=== PATIENT | female | born 1950 | race Caucasian/White ===

== ENCOUNTER → 2016-12-13 | Outpatient (REF) | payer MEDICARE, OTHER ==
[~2016-12-13] MED LIST: BISO5TAB5 PO; COUM2.5T11 PO; CYCLOSPORINE OU; DULO1CAP PO; ICAPTAB8 PO; MULTCAP PO; PANT40TA2 PO; PERC5TAB6 PO; PRAV40TA2 PO; VITACAP9 PO; [UNRECOGNIZED DRUG - CODE] PO; calcium with D OR; fish oil OR; stool softener OR; tylenol OR
[2016-12-13 19:52] LABS: FOLATE 17.9 NG/ML (>5.4); VITAMIN B12 LEVEL 360 PG/ML (247-911)
[2016-12-13 20:44] LABS: ALBUMIN 4.1 GM/DL (3.2-5.2); ALBUMIN/GLOBULIN RATIO 1.11 (1.00-1.93); ALKALINE PHOSPHATASE 98 U/L (45-117); ALT/SGPT 27 U/L (12-78); ANION GAP 8 MEQ/L (8-16); AST/SGOT 18 U/L (15-37); BILIRUBIN,TOTAL 0.4 MG/DL (0.2-1.0); BLOOD UREA NITROGEN 12 MG/DL (7-18); CALCIUM LEVEL 9.1 MG/DL (8.8-10.2); CARBON DIOXIDE LEVEL 32 MEQ/L (21-32); CHLORIDE LEVEL 101 MEQ/L (98-107); CHOLESTEROL LEVEL 232 MG/DL (<200); CREATININE FOR GFR 0.78 MG/DL (0.55-1.02); FERRITIN 122 NG/ML (8-252); FREE T4 1.13 NG/DL (0.76-1.46); GLOMERULAR FILTRATION RATE > 60.0 (>45); GLUCOSE, FASTING 85 MG/DL (80-110); PERCENT SATURATION 15.5 % (13.2-37.4); SODIUM LEVEL 141 MEQ/L (136-145); TOTAL IRON BINDING CAPACITY 361 UG/DL (250-450); TOTAL PROTEIN 7.8 GM/DL (6.4-8.2); TRIGLYCERIDES LEVEL 76 MG/DL (<150)
[2016-12-13 21:01] LABS: MEAN CORPUSCULAR HEMOGLOBIN 30.4 pg (27.0-33.0); MEAN CORPUSCULAR HGB CONC 33.1 g/dl (32.0-36.5); MEAN CORPUSCULAR VOLUME 91.9 fl (80.0-96.0); RED CELL DISTRIBUTION WIDTH 12.5 % (11.5-14.5); WHITE BLOOD COUNT 6.2 K/mm3 (4.0-10.0)
== END ==
LOC: M SFHCADAM 11:35
PROVIDERS: ATTEND Family Medicine
DX: R53.83 Other fatigue (principal); I10 Essential (primary) hypertension; I73.00 Raynaud's syndrome without gangrene; E04.2 Nontoxic multinodular goiter; E89.0 Postprocedural hypothyroidism; E78.5 Hyperlipidemia, unspecified; Z79.899 Other long term (current) drug therapy

== ENCOUNTER → 2017-04-06 | Outpatient (REF) | payer MEDICARE, OTHER ==
[2017-04-06 12:02] LABS: ALBUMIN 3.6 GM/DL (3.2-5.2); ALBUMIN/GLOBULIN RATIO 1.03 (1.00-1.93); ALKALINE PHOSPHATASE 74 U/L (45-117); ALT/SGPT 24 U/L (12-78); AMYLASE 50 U/L (25-115); ANION GAP 6 MEQ/L (8-16); AST/SGOT 21 U/L (15-37); BILIRUBIN,TOTAL 0.4 MG/DL (0.2-1.0); BLOOD UREA NITROGEN 14 MG/DL (7-18); CALCIUM LEVEL 8.8 MG/DL (8.8-10.2); CARBON DIOXIDE LEVEL 32 MEQ/L (21-32); CHLORIDE LEVEL 103 MEQ/L (98-107); CREATININE FOR GFR 0.74 MG/DL (0.55-1.02); GLOMERULAR FILTRATION RATE > 60.0 (>45); GLUCOSE, FASTING 88 MG/DL (80-110); POTASSIUM SERUM 4.1 MEQ/L (3.5-5.1); SODIUM LEVEL 141 MEQ/L (136-145); TOTAL PROTEIN 7.1 GM/DL (6.4-8.2)
== END ==
LOC: M LABDRAWC 11:16
PROVIDERS: ATTEND Internal Medicine Gastroenterology
DX: R11.0 Nausea (principal)

== ENCOUNTER → 2017-06-04 | Outpatient (REF) | payer MEDICARE, OTHER ==
[~2017-06-04] MED LIST changes: -COUM2.5T11 PO; +COUM2.5T17 PO; +FISH5CAP PO; +LEVO100T5 PO; +MULT1TAB10 PO; +OCUVCAP PO; +PERC5TAB12 PO; -PERC5TAB6 PO; +PROBCAP4 PO; +REST0.05 OU; +SUPECAP24 PO; +TYLE500T78 PO
[2017-06-04 13:02] LABS: FREE T4 1.22 NG/DL (0.76-1.46)
== END ==
LOC: M SFHCCLAY 09:39
PROVIDERS: ATTEND Family Medicine
DX: E04.2 Nontoxic multinodular goiter (principal)

== ENCOUNTER → 2017-06-07 | Outpatient (REF) | payer MEDICARE, OTHER | LOC: M SFHCADAM 16:18 | PROVIDERS: ATTEND Family Medicine | DX: K58.0 Irritable bowel syndrome with diarrhea (principal); K21.9 Gastro-esophageal reflux disease without esophagitis; E89.0 Postprocedural hypothyroidism; Z86.19 Personal history of other infectious and parasitic diseases ==

== ENCOUNTER 2017-10-04 12:51 | Day surgery (SDC) | payer MEDICARE, BC, OTHER ==
[~2017-10-04] VITALS: Ht 162.6 cm; Wt 66.7 kg
[~2017-10-04 12:51] MED LIST changes: +LIDOCAINE 2% INJ 100 MG/5 ML SDV (FOR ANES.) As Ordered ONE; +PROPOFOL 200 MG/20 ML VIAL As Ordered ONE
[2017-10-04] MEDS ORDERED: NS 1,000 ML IV ONE (13:00)
[2017-10-04] MEDS ORDERED: PROPOFOL 200 MG/20 ML VIAL As Ordered ONE (14:03)
--- NOTE | 2017-10-04 14:11 | ROOR ---
Patient Name: Bianca Vu Procedure Date: 10/04/2017 1:43 PM Date of : 1950 Age: 67 Room: [facility] Gender: Female Note Status: Finalized Procedure: Colonoscopy Indications: Screening for colorectal malignant neoplasm Providers: Gerardo Castelan Jr, MD Referring MD: Jimmy Donaldson MD Requesting Provider: Medicines: Propofol per Anesthesia Complications: No immediate complications. Procedure: Pre-Anesthesia Assessment: - Prior to the procedure, a History and Physical was performed, and patient medications and allergies were reviewed. The patient is competent. The risks and benefits of the procedure and the sedation options and risks were discussed with the patient. All questions were answered and informed consent was obtained. Patient identification and proposed procedure were verified by the physician and the nurse in the pre-procedure area and in the procedure room. Mental Status Examination: alert and oriented. Airway Examination: normal oropharyngeal airway and neck mobility. Respiratory Examination: clear to auscultation. CV Examination: normal. ASA Grade Assessment: II - A patient with mild systemic disease. After reviewing the risks and benefits, the patient was deemed in satisfactory condition to undergo the procedure. The anesthesia plan was to use moderate sedation / analgesia (conscious sedation). Immediately prior to administration of medications, the patient was re-assessed for adequacy to receive sedatives. The heart rate, respiratory rate, oxygen saturations, blood pressure, adequacy of pulmonary ventilation, and response to care were monitored throughout the procedure. The physical status of the patient was re-assessed after the procedure. The Colonoscope was introduced through the anus and advanced to the cecum, identified by appendiceal orifice and ileocecal valve. The colonoscopy was performed without difficulty. The patient tolerated the procedure well. The quality of the bowel preparation was adequate and good. Findings: The rectum, recto-sigmoid colon, descending colon, transverse colon, cecum, appendiceal orifice and ileocecal valve appeared normal. A few small and large-mouthed diverticula were found in the sigmoid colon. Two polyps were found in the ascending colon. The polyps were small in size. These polyps were removed with a hot snare. Resection and retrieval were complete. Impression: - The rectum, recto-sigmoid colon, descending colon, transverse colon, cecum, appendiceal orifice and ileocecal valve are normal. - Diverticulosis in the sigmoid colon. - Two small polyps in the ascending colon, removed with a hot snare. Resected and retrieved. Recommendation: - Repeat colonoscopy in 5 years for surveillance. Gerardo Castelan MD Gerardo Castelan Jr, MD 10/04/2017 2:11:21 PM This report has been signed electronically. Number of Addenda: 0 Note Initiated On: 10/04/2017 1:43 PM Estimated Blood Loss: Estimated blood loss: none.
[2017-10-04 14:30] VITALS: BP 158/83
== END 2017-10-04 14:40 | disposition home or self-care (01) ==
LOC: M OPP 12:51
PROVIDERS: ATTEND Surgery
DX: Z12.11 Encounter for screening for malignant neoplasm of colon (principal); K57.30 Diverticulosis of large intestine without perforation or abscess without bleeding; D12.2 Benign neoplasm of ascending colon; K21.9 Gastro-esophageal reflux disease without esophagitis; E78.00 Pure hypercholesterolemia, unspecified; E03.9 Hypothyroidism, unspecified; F41.9 Anxiety disorder, unspecified; F33.9 Major depressive disorder, recurrent, unspecified; G47.30 Sleep apnea, unspecified; Z79.899 Other long term (current) drug therapy; Z88.8 Allergy status to other drugs, medicaments and biological substances; Z98.890 Other specified postprocedural states

== ENCOUNTER → 2017-12-11 | Outpatient (REF) | payer MEDICARE, OTHER ==
[2017-12-11 11:48] LABS: HEMOGLOBIN 13.6 g/dl (12.0-16.0); MEAN CORPUSCULAR HEMOGLOBIN 29.2 pg (27.0-33.0); MEAN CORPUSCULAR HGB CONC 32.4 g/dl (32.0-36.5); MEAN CORPUSCULAR VOLUME 90.1 fl (80.0-96.0); PLATELET COUNT, AUTOMATED 354 10^3/uL (150-450); RED BLOOD COUNT 4.66 10^6/uL (4.00-5.40); RED CELL DISTRIBUTION WIDTH 12.8 % (11.5-14.5); WHITE BLOOD COUNT 5.7 10^3/uL (4.0-10.0)
[2017-12-11 12:28] LABS: ANION GAP 7 MEQ/L (8-16); BLOOD UREA NITROGEN 12 MG/DL (7-18); CARBON DIOXIDE LEVEL 32 MEQ/L (21-32); CHLORIDE LEVEL 103 MEQ/L (98-107); CREATININE FOR GFR 0.64 MG/DL (0.55-1.02); GLOMERULAR FILTRATION RATE > 60.0 (>45); GLUCOSE, FASTING 95 MG/DL (80-110); POTASSIUM SERUM 3.7 MEQ/L (3.5-5.1); SODIUM LEVEL 142 MEQ/L (136-145)
[2017-12-11 12:29] LABS: ALBUMIN/GLOBULIN RATIO 1.21 (1.00-1.93); ALKALINE PHOSPHATASE 76 U/L (45-117); ALT/SGPT 18 U/L (12-78); AST/SGOT 19 U/L (7-37); BILIRUBIN,TOTAL 0.6 MG/DL (0.2-1.0); CHOLESTEROL LEVEL 223 MG/DL (<200); CHOLESTEROL RISK RATIO 2.423 (<5); FREE T4 1.34 NG/DL (0.76-1.46); HDL CHOLESTEROL 92 MG/DL (>40); LDL CHOLESTEROL 115.2 MG/DL (<100); NON-HDL-C 131 MG/DL; TOTAL PROTEIN 7.3 GM/DL (6.4-8.2); TRIGLYCERIDES LEVEL 79 MG/DL (<150)
[2017-12-13 00:06] LABS: Lyme Disease IgG/IgM Antibodie <0.91 ISR (0.00-0.90); Lyme Disease IgM Ab Quantitati <0.80 index (0.00-0.79)
== END ==
LOC: M SFHCCLAY 09:12
DX: K58.0 Irritable bowel syndrome with diarrhea (principal); K21.9 Gastro-esophageal reflux disease without esophagitis; E89.0 Postprocedural hypothyroidism; E04.1 Nontoxic single thyroid nodule; Z86.19 Personal history of other infectious and parasitic diseases; M85.80 Other specified disorders of bone density and structure, unspecified site
CPT/HCPCS: 84443

== ENCOUNTER → 2017-12-13 | Outpatient (CLI) | payer MEDICARE, OTHER | LOC: M ADAMS 11:54 | DX: M16.11 Unilateral primary osteoarthritis, right hip (principal) | CPT/HCPCS: 73502 ==

== ENCOUNTER → 2018-04-11 | Outpatient (REF) | payer MEDICARE, OTHER ==
[2018-04-11 19:10] LABS: HEMATOCRIT 41.6 % (36.0-47.0); HEMOGLOBIN 13.6 g/dl (12.0-15.5); MEAN CORPUSCULAR HEMOGLOBIN 29.4 pg (27.0-33.0); MEAN CORPUSCULAR HGB CONC 32.7 g/dl (32.0-36.5); MEAN CORPUSCULAR VOLUME 89.8 fl (80.0-96.0); PLATELET COUNT, AUTOMATED 381 10^3/uL (150-450); RED BLOOD COUNT 4.63 10^6/uL (4.00-5.40); RED CELL DISTRIBUTION WIDTH 12.5 % (11.5-14.5); WHITE BLOOD COUNT 6.7 10^3/uL (4.0-10.0)
[2018-04-11 19:28] LABS: ANION GAP 8 MEQ/L (8-16); BLOOD UREA NITROGEN 15 MG/DL (7-18); CALCIUM LEVEL 9.4 MG/DL (8.8-10.2); CARBON DIOXIDE LEVEL 29 MEQ/L (21-32); CHLORIDE LEVEL 101 MEQ/L (98-107); CREATININE FOR GFR 0.81 MG/DL (0.55-1.30); GLOMERULAR FILTRATION RATE > 60.0 (>45); GLUCOSE, FASTING 86 MG/DL (70-100); POTASSIUM SERUM 4.1 MEQ/L (3.5-5.1); SODIUM LEVEL 138 MEQ/L (136-145)
== END ==
LOC: M SFHCADAM 12:11
DX: I10 Essential (primary) hypertension (principal)
CPT/HCPCS: 80048

== ENCOUNTER → 2018-04-18 | Outpatient (CLI) | payer MEDICARE, BC, OTHER | LOC: M RAD 08:19 | DX: I10 Essential (primary) hypertension (principal) | CPT/HCPCS: 76775 ==

== ENCOUNTER → 2018-09-27 | Outpatient (REF) | payer MEDICARE, OTHER ==
[2018-09-27 17:21] LABS: ERYTHROCYTE SEDIMENTATION RATE 17 mm/hr (0-30)
== END ==
LOC: M SFHCLERA 14:05
DX: I73.00 Raynaud's syndrome without gangrene (principal); M19.90 Unspecified osteoarthritis, unspecified site; M35.00 Sjogren syndrome, unspecified
CPT/HCPCS: 86255

== ENCOUNTER → 2018-09-27 | Outpatient (CLI) | payer MEDICARE, OTHER | LOC: M LRY 14:17 | DX: M19.041 Primary osteoarthritis, right hand (principal); M25.742 Osteophyte, left hand; M19.042 Primary osteoarthritis, left hand; M25.741 Osteophyte, right hand | CPT/HCPCS: 73130; 86255 ==

== ENCOUNTER → 2018-10-04 | Outpatient (REF) | payer MEDICARE, OTHER | LOC: M LAB REF 16:14 | DX: R30.0 Dysuria (principal) | CPT/HCPCS: 87186 ==

== ENCOUNTER → 2018-11-06 | Outpatient (REF) | payer MEDICARE, OTHER | LOC: M WUC 19:19 | DX: N39.0 Urinary tract infection, site not specified (principal) | CPT/HCPCS: 87186 ==

== ENCOUNTER → 2018-12-09 | Outpatient (REF) | payer MEDICARE, OTHER ==
[~2018-12-09] MED LIST changes: -LIDOCAINE 2% INJ 100 MG/5 ML SDV (FOR ANES.) As Ordered ONE; -PANT40TA2 PO; +PANT40TA3 PO; -PROPOFOL 200 MG/20 ML VIAL As Ordered ONE
[2018-12-09 11:35] LABS: HEMATOCRIT 34.9 % (36.0-47.0); HEMOGLOBIN 11.6 g/dl (12.0-15.5); MEAN CORPUSCULAR HEMOGLOBIN 29.5 pg (27.0-33.0); MEAN CORPUSCULAR HGB CONC 33.2 g/dl (32.0-36.5); MEAN CORPUSCULAR VOLUME 88.8 fl (80.0-96.0); PLATELET COUNT, AUTOMATED 368 10^3/uL (150-450); RED BLOOD COUNT 3.93 10^6/uL (4.00-5.40); WHITE BLOOD COUNT 5.9 10^3/uL (4.0-10.0)
[2018-12-09 11:56] LABS: ALBUMIN 3.6 GM/DL (3.2-5.2); ALT/SGPT 28 U/L (12-78); BILIRUBIN,TOTAL 0.5 MG/DL (0.2-1.0); BLOOD UREA NITROGEN 14 MG/DL (7-18); CALCIUM LEVEL 9.3 MG/DL (8.8-10.2); CARBON DIOXIDE LEVEL 30 MEQ/L (21-32); CHLORIDE LEVEL 96 MEQ/L (98-107); CHOLESTEROL LEVEL 201 MG/DL (<200); CHOLESTEROL RISK RATIO 2.481 (<5); CREATININE FOR GFR 0.75 MG/DL (0.55-1.30); FREE T4 1.34 NG/DL (0.76-1.46); GLOMERULAR FILTRATION RATE > 60.0 (>39); GLUCOSE, FASTING 92 MG/DL (70-100); HDL CHOLESTEROL 81 MG/DL (>40); LDL CHOLESTEROL 106 MG/DL (<100); NON-HDL-C 120 MG/DL; SODIUM LEVEL 136 MEQ/L (136-145); TOTAL 25(OH) VITAMIN D 41.6 NG/ML (30.0-100.0); TRIGLYCERIDES LEVEL 72 MG/DL (<150)
== END ==
LOC: M SFHCCLAY 08:32
PROVIDERS: ATTEND Family Medicine
DX: I73.00 Raynaud's syndrome without gangrene (principal); R76.8 Other specified abnormal immunological findings in serum; M85.80 Other specified disorders of bone density and structure, unspecified site; E89.0 Postprocedural hypothyroidism

== ENCOUNTER → 2019-02-05 | Outpatient (REF) | payer MEDICARE, OTHER ==
[2019-02-05 11:45] LABS: BASO # 0.1 10^3/uL (0.0-0.2); BASO % 0.7 % (0.0-1.0); EOS # 0.3 10^3/uL (0.0-0.50); EOS % 3.4 % (0.0-3.0); HEMATOCRIT 38.5 % (36.0-47.0); HEMOGLOBIN 12.9 g/dl (12.0-15.5); LYMPH # 0.8 10^3/uL (1.5-4.5); LYMPH % 11.2 % (24.0-44.0); MEAN CORPUSCULAR HEMOGLOBIN 30.1 pg (27.0-33.0); MEAN CORPUSCULAR HGB CONC 33.5 g/dl (32.0-36.5); MONO # 0.6 10^3/uL (0.0-0.8); MONO % 8.6 % (0.0-5.0); NEUTROPHILS # 5.5 10^3/uL (1.8-7.7); PLATELET COUNT, AUTOMATED 431 10^3/uL (150-450); RED BLOOD COUNT 4.28 10^6/uL (4.00-5.40); WHITE BLOOD COUNT 7.3 10^3/uL (4.0-10.0)
[2019-02-05 12:13] LABS: PERCENT SATURATION 18.2 % (13.2-45.0); THYROID STIMULATING HORMONE 1.72 uIU/ML (0.358-3.740)
== END ==
LOC: M LABDRAWC 11:13
PROVIDERS: ATTEND Orthopaedic Surgery
DX: Z01.818 Encounter for other preprocedural examination (principal); D63.8 Anemia in other chronic diseases classified elsewhere; M25.551 Pain in right hip; M16.11 Unilateral primary osteoarthritis, right hip

== ENCOUNTER → 2019-03-25 | Outpatient (REF) | payer MEDICARE, OTHER ==
[2019-03-25 20:25] LABS: APPEARANCE, URINE CLOUDY (CLEAR); BACTERIA, URINE AUTO NEGATIVE (NEGATIVE); BILIRUBIN, URINE AUTO NEGATIVE (NEGATIVE); BLOOD, URINE BLOOD 2+ (NEGATIVE); COLOR, URINE AMBER (YELLOW); GLUCOSE, URINE (UA) AUTO NEGATIVE (NEGATIVE); KETONE, URINE AUTO TRACE mg/dL (NEGATIVE); LEUKOCYTE ESTERASE, URINE AUTO 3+ (NEGATIVE); MUCUS, URINE SMALL (NEGATIVE); NITRITE, URINE AUTO NEGATIVE (NEGATIVE); PROTEIN, URINE AUTO NEGATIVE (NEGATIVE); RBC, URINE AUTO 25 /HPF (0-3); SQUAMOUS EPITHELIAL CELL UR AU 1 /HPF (0-6); TRANSITIONAL EPITHELIAL AUTO 3 /HPF; WBC, URINE AUTO 138 /HPF (0-3)
== END ==
LOC: M SFHCADAM 15:32
PROVIDERS: ATTEND Family Medicine
DX: N39.46 Mixed incontinence (principal)

== ENCOUNTER 2019-05-12 13:16 | Outpatient (CLI) | payer MEDICARE, OTHER ==
[~2019-05-12] VITALS: Ht 162.6 cm; Wt 66.8 kg
[2019-05-12 13:25] VITALS: BP 141/68
[2019-05-12 14:24] LABS: ALBUMIN 3.3 GM/DL (3.2-5.2); BLOOD UREA NITROGEN 25 MG/DL (7-18); CARBON DIOXIDE LEVEL 28 MEQ/L (21-32); CHLORIDE LEVEL 96 MEQ/L (98-107); CREATININE FOR GFR 0.71 MG/DL (0.55-1.30); GLOMERULAR FILTRATION RATE > 60.0 (>39); GLUCOSE, FASTING 96 MG/DL (70-100); PHOSPHORUS LEVEL 3.8 MG/DL (2.5-4.9); POTASSIUM SERUM 3.7 MEQ/L (3.5-5.1); SODIUM LEVEL 133 MEQ/L (136-145)
[2019-05-12] MEDS ORDERED: LISI-538 PO (14:34)
[2019-05-12] MEDS ORDERED: PLAQ200T4 PO (14:35)
[2019-05-12] MEDS ORDERED: CHLO125TA PO (14:35)
[2019-05-12] MEDS ORDERED: ZOLEDRONIC ACID 5 MG in APPROPRIATE DILUENT 1 EA IV ONE (14:45)
[2019-05-12 15:13] VITALS: BP 127/61
[2019-05-12 15:35] VITALS: BP 125/69
== END 2019-05-12 15:35 | disposition home or self-care (01) ==
LOC: M INFU 13:16
PROVIDERS: ATTEND Family Medicine
DX: M85.80 Other specified disorders of bone density and structure, unspecified site (principal); E21.0 Primary hyperparathyroidism
CPT/HCPCS: 36415; 80069; J3489

== ENCOUNTER → 2019-09-08 | Outpatient (CLI) | payer MEDICARE, OTHER ==
[~2019-09-08] MED LIST changes: -BISO5TAB5 PO; +BISO5TAB9 PO; +CHLO125TA PO; -DULO1CAP PO; +DULO1CAP4 PO; +LISI-538 PO; +PLAQ200T4 PO
--- NOTE | 2019-09-08 16:58 | REP ---
REASON FOR EXAM: Shoulder pain. No trauma. PRIORS: None. 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 The glenohumeral relationship is within normal limits. There is no fracture or subluxation. IMPRESSION:Chronic changes as described above. Electronically Signed by Ignacio Perera DO 09/09/2019 02:11 P
--- NOTE | 2019-09-08 17:19 | REP ---
REASON: Pain. COMPARISON: None. There is syndesmophyte formation seen along the right side of the spine from T6 to T11 inclusive. Only partial small syndesmophytes are seen on the left at T11-12 and T12-L1. Vertebral body height and alignment is within normal limits. There is anterior disc space narrowing at every level. IMPRESSION: Chronic changes as described above. Correlate clinically for possible DISH. Electronically Signed by Ignacio Perera DO 09/09/2019 02:12 P
--- NOTE | 2019-09-08 17:19 | REP ---
REASON FOR EXAM: Pain. There are no priors. Two views of the right scapula show no acute fracture or destructive osseous lesion. Electronically Signed by Ignacio Perera DO 09/09/2019 02:12 P
== END ==
LOC: M WUC 14:44
PROVIDERS: ATTEND Nurse Practitioner Family
DX: M51.34 Other intervertebral disc degeneration, thoracic region (principal); M25.711 Osteophyte, right shoulder

== ENCOUNTER → 2019-11-29 | Outpatient (REF) | payer MEDICARE, OTHER | LOC: M LAB REF 12:20 | PROVIDERS: ATTEND Physician Assistant | DX: R30.0 Dysuria (principal) ==

== ENCOUNTER → 2020-02-25 | Outpatient (REF) | payer MEDICARE, OTHER ==
[~2020-02-25] MED LIST changes: +BISO5TAB14 PO; -BISO5TAB9 PO
[2020-02-25 11:27] LABS: HEMATOCRIT 40.6 % (36.0-47.0); HEMOGLOBIN 13.7 g/dl (12.0-15.5); MEAN CORPUSCULAR HEMOGLOBIN 30.2 pg (27.0-33.0); MEAN CORPUSCULAR HGB CONC 33.7 g/dl (32.0-36.5); MEAN CORPUSCULAR VOLUME 89.6 fl (80.0-96.0); PLATELET COUNT, AUTOMATED 340 10^3/uL (150-450); RED BLOOD COUNT 4.53 10^6/uL (4.00-5.40); WHITE BLOOD COUNT 6.9 10^3/uL (4.0-10.0)
[2020-02-25 11:39] LABS: ALBUMIN 3.7 GM/DL (3.2-5.2); ALT/SGPT 19 U/L (12-78); BILIRUBIN,TOTAL 0.6 MG/DL (0.2-1.0); BLOOD UREA NITROGEN 18 MG/DL (7-18); CALCIUM LEVEL 9.5 MG/DL (8.8-10.2); CARBON DIOXIDE LEVEL 33 MEQ/L (21-32); CHLORIDE LEVEL 95 MEQ/L (98-107); CHOLESTEROL LEVEL 209 MG/DL (<200); CHOLESTEROL RISK RATIO 2.375 (<5); CREATININE FOR GFR 0.81 MG/DL (0.55-1.30); FREE T4 1.23 NG/DL (0.76-1.46); GLOMERULAR FILTRATION RATE > 60.0 (>39); GLUCOSE, FASTING 109 MG/DL (70-100); HDL CHOLESTEROL 88 MG/DL (>40); LDL CHOLESTEROL 106 MG/DL (<100); NON-HDL-C 121 MG/DL; POTASSIUM SERUM 3.8 MEQ/L (3.5-5.1); SODIUM LEVEL 132 MEQ/L (136-145); THYROID STIMULATING HORMONE 0.847 uIU/ML (0.358-3.740); TOTAL PROTEIN 6.7 GM/DL (6.4-8.2); TRIGLYCERIDES LEVEL 75 MG/DL (<150)
[2020-02-25 11:43] LABS: TOTAL 25(OH) VITAMIN D 19.7 NG/ML (30.0-100.0)
== END ==
LOC: M SFHCCLAY 07:14
PROVIDERS: ATTEND Family Medicine
DX: I10 Essential (primary) hypertension (principal); K21.9 Gastro-esophageal reflux disease without esophagitis; E89.0 Postprocedural hypothyroidism; E78.5 Hyperlipidemia, unspecified; E55.9 Vitamin D deficiency, unspecified

== ENCOUNTER → 2020-09-14 | Outpatient (REF) | payer MEDICARE, OTHER ==
[~2020-09-14] MED LIST changes: +PANT40TA29 PO; -PANT40TA3 PO
== END ==
LOC: M LAB REF 15:17
PROVIDERS: ATTEND Physician Assistant
DX: R30.0 Dysuria (principal)

== ENCOUNTER → 2020-12-09 | Outpatient (REF) | payer MEDICARE, OTHER ==
[2020-12-09 12:03] LABS: BLOOD UREA NITROGEN 14 MG/DL (7-18); CALCIUM LEVEL 9.6 MG/DL (8.8-10.2); CARBON DIOXIDE LEVEL 34 MEQ/L (21-32); CHLORIDE LEVEL 92 MEQ/L (98-107); GLOMERULAR FILTRATION RATE > 60.0 (>39); GLUCOSE, FASTING 95 MG/DL (70-100); POTASSIUM SERUM 3.9 MEQ/L (3.5-5.1); SODIUM LEVEL 129 MEQ/L (136-145)
== END ==
LOC: M SFHCCLAY 08:33
PROVIDERS: ATTEND Family Medicine
DX: M85.80 Other specified disorders of bone density and structure, unspecified site (principal)

== ENCOUNTER 2020-12-13 13:09 | Outpatient (CLI) | payer MEDICARE, BC, OTHER ==
[~2020-12-13] VITALS: Ht 162.6 cm; Wt 70.5 kg
[~2020-12-13 13:09] MED LIST changes: -LISI-538 PO; +LISI20TA33 PO
[2020-12-13] MEDS ORDERED: ZOLEDRONIC ACID 5 MG in IV 1 EA IV ONE (13:30)
[2020-12-13 13:42] VITALS: BP 138/70
[2020-12-13 14:06] VITALS: BP 148/72
== END 2020-12-13 14:15 | disposition home or self-care (01) ==
LOC: M INFU 13:09
PROVIDERS: ATTEND Family Medicine
DX: M19.90 Unspecified osteoarthritis, unspecified site (principal); Z88.6 Allergy status to analgesic agent; Z88.8 Allergy status to other drugs, medicaments and biological substances
CPT/HCPCS: 96365; J3489

== ENCOUNTER → 2021-01-07 | Outpatient (REF) | payer MEDICARE, OTHER ==
[2021-01-07 11:30] LABS: BASO # 0.1 10^3/uL (0.0-0.2); EOS # 0.4 10^3/uL (0.0-0.5); HEMATOCRIT 40.3 % (36.0-47.0); HEMOGLOBIN 13.5 g/dl (12.0-15.5); LYMPH # 1.1 10^3/uL (1.5-5.0); LYMPH % 14.6 % (24.0-44.0); MEAN CORPUSCULAR HEMOGLOBIN 29.9 pg (27.0-33.0); MEAN CORPUSCULAR HGB CONC 33.5 g/dl (32.0-36.5); MEAN CORPUSCULAR VOLUME 89.2 fl (80.0-96.0); MONO # 0.7 10^3/uL (0.0-0.8); MONO % 10.1 % (2.0-8.0); NEUTROPHILS # 4.9 10^3/uL (1.5-8.5); PLATELET COUNT, AUTOMATED 378 10^3/uL (150-450); RED BLOOD COUNT 4.52 10^6/uL (4.00-5.40); WHITE BLOOD COUNT 7.2 10^3/uL (4.0-10.0)
[2021-01-07 12:00] LABS: ERYTHROCYTE SEDIMENTATION RATE 11 mm/hr (0-30)
[2021-01-07 12:03] LABS: ALBUMIN 4.1 GM/DL (3.2-5.2); ALT/SGPT 20 U/L (12-78); BILIRUBIN,TOTAL 0.6 MG/DL (0.2-1.0); BLOOD UREA NITROGEN 9 MG/DL (7-18); CALCIUM LEVEL 9.2 MG/DL (8.8-10.2); CARBON DIOXIDE LEVEL 32 MEQ/L (21-32); CHLORIDE LEVEL 91 MEQ/L (98-107); CREATININE FOR GFR 0.72 MG/DL (0.55-1.30); GLOMERULAR FILTRATION RATE > 60.0 (>39); GLUCOSE, FASTING 89 MG/DL (70-100); POTASSIUM SERUM 3.8 MEQ/L (3.5-5.1); SODIUM LEVEL 130 MEQ/L (136-145); TOTAL PROTEIN 7.3 GM/DL (6.4-8.2)
== END ==
LOC: M SFHCCLAY 08:20
PROVIDERS: ATTEND Internal Medicine
DX: M35.00 Sjogren syndrome, unspecified (principal)

== ENCOUNTER → 2021-04-01 | Outpatient (REF) | payer MEDICARE, OTHER ==
[2021-04-01 12:06] LABS: HEMATOCRIT 41.2 % (36.0-47.0); HEMOGLOBIN 13.3 g/dl (12.0-15.5); MEAN CORPUSCULAR HEMOGLOBIN 29.6 pg (27.0-33.0); MEAN CORPUSCULAR HGB CONC 32.3 g/dl (32.0-36.5); MEAN CORPUSCULAR VOLUME 91.8 fl (80.0-96.0); PLATELET COUNT, AUTOMATED 360 10^3/uL (150-450); RED BLOOD COUNT 4.49 10^6/uL (4.00-5.40); WHITE BLOOD COUNT 8.3 10^3/uL (4.0-10.0)
[2021-04-01 12:35] LABS: ALBUMIN 3.8 GM/DL (3.2-5.2); ALT/SGPT 18 U/L (12-78); BILIRUBIN,TOTAL 0.4 MG/DL (0.2-1.0); BLOOD UREA NITROGEN 10 MG/DL (7-18); CALCIUM LEVEL 9.7 MG/DL (8.8-10.2); CARBON DIOXIDE LEVEL 32 MEQ/L (21-32); CHLORIDE LEVEL 97 MEQ/L (98-107); CHOLESTEROL LEVEL 224 MG/DL (<200); CHOLESTEROL RISK RATIO 1.964 (<5); CREATININE FOR GFR 0.71 MG/DL (0.55-1.30); GLOMERULAR FILTRATION RATE > 60.0 (>39); GLUCOSE, FASTING 87 MG/DL (70-100); HDL CHOLESTEROL 114 MG/DL (>40); LDL CHOLESTEROL 100 MG/DL (<100); NON-HDL-C 110 MG/DL; POTASSIUM SERUM 4.2 MEQ/L (3.5-5.1); SODIUM LEVEL 134 MEQ/L (136-145); TOTAL PROTEIN 6.7 GM/DL (6.4-8.2); TRIGLYCERIDES LEVEL 50 MG/DL (<150)
[2021-04-01 12:41] LABS: HEMOGLOBIN A1c 5.3 %
== END ==
LOC: M SFHCCLAY 08:27
PROVIDERS: ATTEND Family Medicine
DX: F32.9 Major depressive disorder, single episode, unspecified (principal); E74.9 Disorder of carbohydrate metabolism, unspecified; E78.5 Hyperlipidemia, unspecified

== ENCOUNTER → 2021-06-24 | Outpatient (REF) | payer MEDICARE, OTHER ==
[2021-06-24 12:32] LABS: BASO # 0.1 10^3/uL (0.0-0.2); EOS # 0.4 10^3/uL (0.0-0.5); EOS % 5.8 % (0.0-3.0); HEMATOCRIT 39.7 % (36.0-47.0); LYMPH # 1.2 10^3/uL (1.5-5.0); LYMPH % 17.3 % (24.0-44.0); MEAN CORPUSCULAR HEMOGLOBIN 29.8 pg (27.0-33.0); MEAN CORPUSCULAR HGB CONC 32.7 g/dl (32.0-36.5); MEAN CORPUSCULAR VOLUME 91.1 fl (80.0-96.0); MONO # 0.7 10^3/uL (0.0-0.8); MONO % 10.2 % (2.0-8.0); NEUTROPHILS # 4.6 10^3/uL (1.5-8.5); NEUTROPHILS % 65.4 % (36.0-66.0); PLATELET COUNT, AUTOMATED 363 10^3/uL (150-450); RED BLOOD COUNT 4.36 10^6/uL (4.00-5.40)
[2021-06-24 13:07] LABS: ALBUMIN 3.8 GM/DL (3.2-5.2); ALT/SGPT 20 U/L (12-78); BILIRUBIN,TOTAL 0.4 MG/DL (0.2-1.0); BLOOD UREA NITROGEN 17 MG/DL (7-18); CALCIUM LEVEL 9.5 MG/DL (8.8-10.2); CARBON DIOXIDE LEVEL 31 MEQ/L (21-32); CHLORIDE LEVEL 98 MEQ/L (98-107); GLOMERULAR FILTRATION RATE > 60.0 (>39); GLUCOSE, FASTING 91 MG/DL (70-100); SODIUM LEVEL 134 MEQ/L (136-145); TOTAL PROTEIN 6.9 GM/DL (6.4-8.2)
[2021-06-24 13:08] LABS: ERYTHROCYTE SEDIMENTATION RATE 9 mm/hr (0-30)
== END ==
LOC: M SFHCCLAY 08:13
PROVIDERS: ATTEND Internal Medicine
DX: M35.00 Sjogren syndrome, unspecified (principal); E87.1 Hypo-osmolality and hyponatremia

== ENCOUNTER → 2021-10-18 | Outpatient (REF) | payer MEDICARE, OTHER ==
[2021-10-18 18:42] LABS: BLOOD UREA NITROGEN 14 MG/DL (7-18); CALCIUM LEVEL 9.8 MG/DL (8.8-10.2); CARBON DIOXIDE LEVEL 32 MEQ/L (21-32); CHLORIDE LEVEL 92 MEQ/L (98-107); CREATININE FOR GFR 0.77 MG/DL (0.55-1.30); FREE T4 1.35 NG/DL (0.76-1.46); GLOMERULAR FILTRATION RATE > 60.0 (>39); GLUCOSE, FASTING 89 MG/DL (70-100); POTASSIUM SERUM 3.5 MEQ/L (3.5-5.1); SODIUM LEVEL 130 MEQ/L (136-145)
== END ==
LOC: M SFHCADAM 15:52
PROVIDERS: ATTEND Family Medicine
DX: E89.0 Postprocedural hypothyroidism (principal); I10 Essential (primary) hypertension

== ENCOUNTER → 2021-10-18 | Outpatient (CLI) | payer MEDICARE, OTHER ==
--- NOTE | 2021-10-18 16:35 | REP ---
INDICATION: THORACIC SPINE PAIN, OSTEOPENIA DETERMINED BY XRAY COMPARISON: None. TECHNIQUE: AP, lateral, and swimmers views. FINDINGS: Alignment and kyphosis maintained. No acute fracture/compression injury. Advanced multilevel degenerative changes include endplate sclerosis, disc space narrowing and bridging osteophytosis. IMPRESSION: Degenerative changes. No acute fracture/compression injury or subluxation. <Electronically signed by aPvel Mandujano > 10/18/21 [id number]
== END ==
LOC: M ADAMS 16:01
PROVIDERS: ATTEND Family Medicine
DX: M51.34 Other intervertebral disc degeneration, thoracic region (principal); M85.80 Other specified disorders of bone density and structure, unspecified site

== ENCOUNTER → 2021-12-28 | Outpatient (CLI) | payer MEDICARE, BC, OTHER ==
[2021-12-28 08:20] LABS: APPEARANCE, URINE CLEAR (CLEAR); BACTERIA, URINE AUTO NEGATIVE (NEGATIVE); BILIRUBIN, URINE AUTO NEGATIVE (NEGATIVE); BLOOD, URINE BLOOD 1+ (NEGATIVE); COLOR, URINE YELLOW (YELLOW); GLUCOSE, URINE (UA) AUTO NEGATIVE (NEGATIVE); KETONE, URINE AUTO NEGATIVE (NEGATIVE); LEUKOCYTE ESTERASE, URINE AUTO NEGATIVE (NEGATIVE); NITRITE, URINE AUTO NEGATIVE (NEGATIVE); PROTEIN, URINE AUTO NEGATIVE (NEGATIVE); RBC, URINE AUTO 6 /HPF (0-3); SPECIFIC GRAVITY URINE AUTO 1.011 (1.002-1.035); SQUAMOUS EPITHELIAL CELL UR AU 0 /HPF (0-6); UROBILINOGEN, URINE AUTO 0.2 mg/dL (0.0-2.0); WBC, URINE AUTO 1 /HPF (0-3)
[2021-12-28 08:32] LABS: BASO # 0.1 10^3/uL (0.0-0.2); BASO % 0.8 % (0.0-1.0); EOS # 0.4 10^3/uL (0.0-0.5); EOS % 5.3 % (0.0-3.0); HEMATOCRIT 39.7 % (36.0-47.0); HEMOGLOBIN 13.6 g/dl (12.0-15.5); LYMPH # 1.1 10^3/uL (1.5-5.0); LYMPH % 15.3 % (24.0-44.0); MEAN CORPUSCULAR HEMOGLOBIN 30.2 pg (27.0-33.0); MEAN CORPUSCULAR HGB CONC 34.3 g/dl (32.0-36.5); MONO # 0.8 10^3/uL (0.0-0.8); MONO % 10.4 % (2.0-8.0); NEUTROPHILS % 67.8 % (36.0-66.0); PLATELET COUNT, AUTOMATED 370 10^3/uL (150-450); RED BLOOD COUNT 4.51 10^6/uL (4.00-5.40); WHITE BLOOD COUNT 7.3 10^3/uL (4.0-10.0)
[2021-12-28 08:47] LABS: TOTAL PROTEIN,RANDOM URINE 13.1 MG/DL (0.0-12.0)
[2021-12-28 08:54] LABS: ERYTHROCYTE SEDIMENTATION RATE 11 mm/hr (0-30)
[2021-12-28 08:58] LABS: ALBUMIN 3.7 GM/DL (3.2-5.2); ALT/SGPT 20 U/L (12-78); BILIRUBIN,TOTAL 0.4 MG/DL (0.2-1.0); BLOOD UREA NITROGEN 18 MG/DL (7-18); CALCIUM LEVEL 9.6 MG/DL (8.8-10.2); CARBON DIOXIDE LEVEL 31 MEQ/L (21-32); CHLORIDE LEVEL 95 MEQ/L (98-107); COMPLEMENT C3 118 MG/DL (90-180); COMPLEMENT C4 28 MG/DL (10-40); CREATININE FOR GFR 0.76 MG/DL (0.55-1.30); GLOMERULAR FILTRATION RATE > 60.0 (>39); GLUCOSE, FASTING 85 MG/DL (70-100); POTASSIUM SERUM 3.6 MEQ/L (3.5-5.1); SODIUM LEVEL 132 MEQ/L (136-145)
[2021-12-30 13:12] LABS: ANTI DS-DNA AB Negative (Negative)
== END ==
LOC: M LAB 07:17
PROVIDERS: ATTEND Internal Medicine Rheumatology
DX: M35.00 Sjogren syndrome, unspecified (principal)

== ENCOUNTER → 2022-01-16 | Outpatient (REF) | payer MEDICARE, OTHER ==
[2022-01-16 11:27] LABS: BASO # 0.1 10^3/uL (0.0-0.2); BASO % 0.9 % (0.0-1.0); EOS # 0.4 10^3/uL (0.0-0.5); HEMATOCRIT 39.4 % (36.0-47.0); HEMOGLOBIN 13.1 g/dl (12.0-15.5); LYMPH % 14.7 % (24.0-44.0); MEAN CORPUSCULAR HEMOGLOBIN 29.8 pg (27.0-33.0); MEAN CORPUSCULAR HGB CONC 33.2 g/dl (32.0-36.5); MEAN CORPUSCULAR VOLUME 89.5 fl (80.0-96.0); MONO # 0.8 10^3/uL (0.0-0.8); NEUTROPHILS # 4.6 10^3/uL (1.5-8.5); NEUTROPHILS % 67.3 % (36.0-66.0); PLATELET COUNT, AUTOMATED 365 10^3/uL (150-450); WHITE BLOOD COUNT 6.8 10^3/uL (4.0-10.0)
[2022-01-16 11:30] LABS: APPEARANCE, URINE CLEAR (CLEAR); BACTERIA, URINE AUTO NEGATIVE (NEGATIVE); BILIRUBIN, URINE AUTO NEGATIVE (NEGATIVE); BLOOD, URINE BLOOD 1+ (NEGATIVE); COLOR, URINE YELLOW (YELLOW); GLUCOSE, URINE (UA) AUTO NEGATIVE (NEGATIVE); KETONE, URINE AUTO NEGATIVE (NEGATIVE); LEUKOCYTE ESTERASE, URINE AUTO NEGATIVE (NEGATIVE); MUCUS, URINE SMALL (NEGATIVE); NITRITE, URINE AUTO NEGATIVE (NEGATIVE); PROTEIN, URINE AUTO NEGATIVE (NEGATIVE); RBC, URINE AUTO 2 /HPF (0-3); SQUAMOUS EPITHELIAL CELL UR AU 0 /HPF (0-6); UROBILINOGEN, URINE AUTO 0.2 mg/dL (0.0-2.0); WBC, URINE AUTO 0 /HPF (0-3)
[2022-01-16 11:55] LABS: CREATININE,RANDOM URINE 51.8 MG/DL; TOTAL PROTEIN,RANDOM URINE 11.8 MG/DL (0.0-12.0)
[2022-01-16 12:00] LABS: ERYTHROCYTE SEDIMENTATION RATE 10 mm/hr (0-30)
[2022-01-16 12:18] LABS: ALBUMIN 3.9 GM/DL (3.2-5.2); ALT/SGPT 19 U/L (12-78); BILIRUBIN,TOTAL 0.5 MG/DL (0.2-1.0); BLOOD UREA NITROGEN 15 MG/DL (7-18); CALCIUM LEVEL 9.4 MG/DL (8.8-10.2); CARBON DIOXIDE LEVEL 31 MEQ/L (21-32); CHLORIDE LEVEL 96 MEQ/L (98-107); COMPLEMENT C3 111 MG/DL (90-180); COMPLEMENT C4 28 MG/DL (10-40); CREATININE FOR GFR 0.85 MG/DL (0.55-1.30); FREE T4 1.27 NG/DL (0.76-1.46); GLOMERULAR FILTRATION RATE > 60.0 (>39); GLUCOSE, FASTING 105 MG/DL (70-100); POTASSIUM SERUM 3.9 MEQ/L (3.5-5.1); SODIUM LEVEL 134 MEQ/L (136-145)
== END ==
LOC: M SFHCCLAY 08:29
PROVIDERS: ATTEND Family Medicine
DX: R05.8 Other specified cough (principal); M35.00 Sjogren syndrome, unspecified; I73.00 Raynaud's syndrome without gangrene; M15.4 Erosive (osteo)arthritis; Z79.899 Other long term (current) drug therapy

== ENCOUNTER → 2022-01-20 | Outpatient (CLI) | payer MEDICARE, BC | LOC: M CLY 09:40 | PROVIDERS: ATTEND Family Medicine | DX: E89.0 Postprocedural hypothyroidism (principal); Z98.1 Arthrodesis status ==

== ENCOUNTER → 2022-01-20 | Outpatient (REF) | payer MEDICARE, OTHER ==
[2022-01-20 11:42] LABS: HEMATOCRIT 41.2 % (36.0-47.0); HEMOGLOBIN 13.9 g/dl (12.0-15.5); MEAN CORPUSCULAR HEMOGLOBIN 29.6 pg (27.0-33.0); MEAN CORPUSCULAR HGB CONC 33.7 g/dl (32.0-36.5); MEAN CORPUSCULAR VOLUME 87.8 fl (80.0-96.0); PLATELET COUNT, AUTOMATED 397 10^3/uL (150-450); RED BLOOD COUNT 4.69 10^6/uL (4.00-5.40); WHITE BLOOD COUNT 8.2 10^3/uL (4.0-10.0)
[2022-01-20 12:18] LABS: BLOOD UREA NITROGEN 12 MG/DL (7-18); CARBON DIOXIDE LEVEL 28 MEQ/L (21-32); CHLORIDE LEVEL 93 MEQ/L (98-107); CREATININE FOR GFR 0.88 MG/DL (0.55-1.30); GLOMERULAR FILTRATION RATE > 60.0 (>39); GLUCOSE, FASTING 86 MG/DL (70-100); NT-PRO BNP 87 PG/ML (<125); POTASSIUM SERUM 3.7 MEQ/L (3.5-5.1); SODIUM LEVEL 129 MEQ/L (136-145)
== END ==
LOC: M SFHCCLAY 09:29
PROVIDERS: ATTEND Family Medicine
DX: R53.83 Other fatigue (principal); H02.403 Unspecified ptosis of bilateral eyelids; R10.13 Epigastric pain; R06.00 Dyspnea, unspecified

== ENCOUNTER → 2022-02-13 | Outpatient (CLI) | payer MEDICARE, BC, OTHER | LOC: M CARPUL 09:18 | PROVIDERS: ATTEND Family Medicine | DX: R06.00 Dyspnea, unspecified (principal) ==

== ENCOUNTER → 2022-03-08 | Outpatient (REF) | payer MEDICARE, OTHER ==
[2022-03-08 16:30] LABS: FREE T4 1.15 NG/DL (0.76-1.46); THYROID STIMULATING HORMONE 1.16 uIU/ML (0.358-3.740)
== END ==
LOC: M SFHCCLAY 13:33
PROVIDERS: ATTEND Family Medicine
DX: E89.0 Postprocedural hypothyroidism (principal)

== ENCOUNTER → 2022-04-15 | Outpatient (CLI) | payer MEDICARE, BC, OTHER ==
[~2022-04-15] MED LIST changes: +CITRTAB18 PO; +IRBE75TA4; +LUTE1CAP7 PO; +META28.32 PO; +SUCR1TAB56; +SUPETAB56 PO; +SYNT125T; +TYLE650T38 PO
== END ==
LOC: M LABSMTC 10:01
PROVIDERS: ATTEND Anesthesiology
DX: Z01.812 Encounter for preprocedural laboratory examination (principal); Z20.822 Contact with and (suspected) exposure to COVID-19

== ENCOUNTER 2022-04-20 08:03 | Day surgery (SDC) | payer MEDICARE, BC, OTHER ==
[~2022-04-20] VITALS: Ht 162.6 cm; Wt 73.0 kg
[~2022-04-20 08:03] MED LIST changes: +NS 1,000 ML IV ONE
[2022-04-20] MEDS ORDERED: fentaNYL 100 MCG/2 ML INJECTION As Ordered ONE (09:11)
[2022-04-20] MEDS ORDERED: propofoL 200 MG/20 ML VIAL As Ordered ONE (09:12)
[2022-04-20] MEDS ORDERED: LIDOCAINE 2% 100MG/5ML SDV (FOR ANES.) As Ordered ONE (09:12)
[2022-04-20 09:53] VITALS: BP 163/74
== END 2022-04-20 09:55 | disposition home or self-care (01) ==
LOC: M OPP 08:03
PROVIDERS: ATTEND Surgery
DX: Z12.11 Encounter for screening for malignant neoplasm of colon (principal); Z86.010 Personal history of colon polyps; K63.5 Polyp of colon; K31.7 Polyp of stomach and duodenum; K31.89 Other diseases of stomach and duodenum; R13.10 Dysphagia, unspecified; Z79.02 Long term (current) use of antithrombotics/antiplatelets; Z79.1 Long term (current) use of non-steroidal anti-inflammatories (NSAID); Z79.899 Other long term (current) drug therapy; Z88.8 Allergy status to other drugs, medicaments and biological substances
CPT/HCPCS: 43239; 88305; G0105; J3010

== ENCOUNTER → 2022-06-20 | Outpatient (REF) | payer MEDICARE, OTHER ==
[~2022-06-20] MED LIST changes: -NS 1,000 ML IV ONE
[2022-06-20 12:20] LABS: APPEARANCE, URINE CLEAR (CLEAR); BACTERIA, URINE AUTO NEGATIVE (NEGATIVE); BILIRUBIN, URINE AUTO NEGATIVE (NEGATIVE); BLOOD, URINE BLOOD 1+ (NEGATIVE); COLOR, URINE YELLOW (YELLOW); GLUCOSE, URINE (UA) AUTO NEGATIVE (NEGATIVE); KETONE, URINE AUTO NEGATIVE (NEGATIVE); LEUKOCYTE ESTERASE, URINE AUTO NEGATIVE (NEGATIVE); MUCUS, URINE SMALL (NEGATIVE); NITRITE, URINE AUTO NEGATIVE (NEGATIVE); PROTEIN, URINE AUTO NEGATIVE (NEGATIVE); RBC, URINE AUTO 2 /HPF (0-3); SPECIFIC GRAVITY URINE AUTO 1.006 (1.002-1.035); SQUAMOUS EPITHELIAL CELL UR AU 0 /HPF (0-6); UROBILINOGEN, URINE AUTO 0.2 mg/dL (0.0-2.0); WBC, URINE AUTO 0 /HPF (0-3)
[2022-06-20 12:28] LABS: BASO # 0.1 10^3/uL (0.0-0.2); BASO % 0.9 % (0.0-1.0); EOS # 0.4 10^3/uL (0.0-0.5); EOS % 5.3 % (0.0-3.0); HEMATOCRIT 39.7 % (36.0-47.0); HEMOGLOBIN 13.1 g/dl (12.0-15.5); LYMPH # 1.1 10^3/uL (1.5-5.0); MEAN CORPUSCULAR HEMOGLOBIN 28.6 pg (27.0-33.0); MEAN CORPUSCULAR VOLUME 86.7 fl (80.0-96.0); MONO # 0.7 10^3/uL (0.0-0.8); MONO % 10.3 % (2.0-8.0); NEUTROPHILS # 4.8 10^3/uL (1.5-8.5); NEUTROPHILS % 68.1 % (36.0-66.0); PLATELET COUNT, AUTOMATED 354 10^3/uL (150-450); RED BLOOD COUNT 4.58 10^6/uL (4.00-5.40)
[2022-06-20 12:57] LABS: ERYTHROCYTE SEDIMENTATION RATE 8 mm/hr (0-30)
[2022-06-20 13:01] LABS: ALBUMIN 3.9 GM/DL (3.2-5.2); ALT/SGPT 22 U/L (12-78); BILIRUBIN,TOTAL 0.5 MG/DL (0.2-1.0); BLOOD UREA NITROGEN 12 MG/DL (7-18); CARBON DIOXIDE LEVEL 31 MEQ/L (21-32); CHLORIDE LEVEL 94 MEQ/L (98-107); COMPLEMENT C3 115 MG/DL (90-180); COMPLEMENT C4 28 MG/DL (10-40); CREATININE FOR GFR 0.78 MG/DL (0.55-1.30); GLOMERULAR FILTRATION RATE > 60.0 (>39); GLUCOSE, FASTING 109 MG/DL (70-100); POTASSIUM SERUM 3.6 MEQ/L (3.5-5.1); SODIUM LEVEL 131 MEQ/L (136-145); TOTAL PROTEIN 6.9 GM/DL (6.4-8.2)
[2022-06-20 13:09] LABS: CREATININE,RANDOM URINE 29.8 MG/DL; TOTAL PROTEIN,RANDOM URINE 11.8 MG/DL (0.0-12.0)
== END ==
LOC: M SFHCRHEU 08:42
PROVIDERS: ATTEND Internal Medicine Rheumatology
DX: M35.00 Sjogren syndrome, unspecified (principal); I73.00 Raynaud's syndrome without gangrene; M15.4 Erosive (osteo)arthritis; Z79.899 Other long term (current) drug therapy

== ENCOUNTER → 2022-12-08 | Outpatient (REF) | payer MEDICARE, OTHER ==
[2022-12-08 12:19] LABS: ALKALINE PHOSPHATASE 64 U/L (46-116); ALT/SGPT 19 U/L (7.0-40); AST/SGOT 22 U/L (<34); BILIRUBIN,TOTAL 0.6 MG/DL (0.3-1.2); BLOOD UREA NITROGEN 12 MG/DL (9-23); CALCIUM LEVEL 10.4 MG/DL (8.3-10.6); CARBON DIOXIDE LEVEL 31 MMOL/L (20-31); CHLORIDE LEVEL 93 MMOL/L (98-107); CHOLESTEROL LEVEL 214 MG/DL (<200); CHOLESTEROL RISK RATIO 2.37 (<5); GLOMERULAR FILTRATION RATE > 60.0 (>39); GLUCOSE, FASTING 94 MG/DL (74-106); HDL CHOLESTEROL 90.1 MG/DL (>40); LDL CHOLESTEROL 107.7 MG/DL (<100); NON-HDL-C 124 MG/DL; POTASSIUM SERUM 3.6 MMOL/L (3.5-5.1); SODIUM LEVEL 131 MMOL/L (136-145); TOTAL PROTEIN 7.3 G/DL (5.7-8.2); TRIGLYCERIDES LEVEL 81 MG/DL (<150)
[2022-12-08 12:20] LABS: THYROID STIMULATING HORMONE 0.761 uIU/ML (0.55-4.78)
[2022-12-08 12:21] LABS: FREE T4 1.44 NG/DL (0.89-1.76)
== END ==
LOC: M SFHCCLAY 09:17
PROVIDERS: ATTEND Family Medicine
DX: E78.5 Hyperlipidemia, unspecified (principal); E89.0 Postprocedural hypothyroidism; I10 Essential (primary) hypertension

== ENCOUNTER → 2022-12-26 | Outpatient (REF) | payer MEDICARE, OTHER ==
[2022-12-26 13:50] LABS: APPEARANCE, URINE MANUAL CLEAR (CLEAR); COLOR, URINE MANUAL YELLOW (YELLOW); SPECIFIC GRAVITY,URINE MANUAL 1.015 (1.002-1.035)
[2022-12-26 13:51] LABS: BILIRUBIN, URINE MANUAL NEGATIVE (NEGATIVE); BLOOD URINE MANUAL POSITIVE (NEGATIVE); GLUCOSE, URINE (UA) MANUAL NEGATIVE (NEGATIVE); KETONE, URINE MANUAL NEGATIVE (NEGATIVE); LEUKOCYTE ESTERASE, URINE MAN TRACE (NEGATIVE); NITRITE, URINE MANUAL NEGATIVE (NEGATIVE); PROTEIN, URINE MANUAL NEGATIVE (NEGATIVE); UROBILINOGEN, URINE MANUAL NORMAL (NORMAL)
[2022-12-26 14:08] LABS: TOTAL PROTEIN,RANDOM URINE 16.6 MG/DL (0.0-14.0)
[2022-12-26 14:13] LABS: C REACTIVE PROTEIN QUANTITATIV < 0.40 MG/DL (<1.0)
[2022-12-26 14:14] LABS: COMPLEMENT C3 134.1 MG/DL (90.0-170.0); CREATININE,RANDOM URINE 81.6 MG/DL
[2022-12-26 14:15] LABS: COMPLEMENT C4 41.1 MG/DL (12-36)
[2022-12-26 14:34] LABS: BACTERIA, URINE SMALL AMOUNT; HYALINE CAST, URINE NONE SEEN /lpf (0-1); SQUAMOUS EPITHELIAL CELL URINE SMALL AMOUNT /hpf (SMALL AMT); WBC, URINE 0-1 /hpf (0-3)
== END ==
LOC: M SFHCADAM 10:36
PROVIDERS: ATTEND Family Medicine
DX: M35.00 Sjogren syndrome, unspecified (principal); I73.00 Raynaud's syndrome without gangrene; M15.4 Erosive (osteo)arthritis; Z79.899 Other long term (current) drug therapy

== ENCOUNTER 2023-01-29 12:30 | Outpatient (CLI) | payer MEDICARE, BC, OTHER ==
[2023-01-29 12:30] VITALS: BP 150/72
[2023-01-29 13:12] VITALS: BP 126/74
[2023-01-29] MEDS ORDERED: ZOLEDRONIC ACID 5 MG in IV 1 EA IV ONE (13:30)
== END 2023-01-29 13:15 | disposition home or self-care (01) ==
LOC: M INFU 12:30
PROVIDERS: ATTEND Family Medicine
DX: M15.4 Erosive (osteo)arthritis (principal); Z88.6 Allergy status to analgesic agent; Z88.8 Allergy status to other drugs, medicaments and biological substances
CPT/HCPCS: 96413; J3489

== ENCOUNTER → 2023-06-19 | Outpatient (CLI) | payer MEDICARE, OTHER | LOC: M ADAMS 11:14 | PROVIDERS: ATTEND Family Medicine | DX: M85.88 Other specified disorders of bone density and structure, other site (principal); Z96.643 Presence of artificial hip joint, bilateral ==

== ENCOUNTER → 2023-07-02 | Outpatient (REF) | payer MEDICARE, OTHER | LOC: M LAB REF 16:56 | PROVIDERS: ATTEND Student in an Organized Health Care Education/Training Program | DX: R30.0 Dysuria (principal) ==

== ENCOUNTER → 2023-10-17 | Outpatient (REF) | payer MEDICARE, OTHER ==
[2023-10-17 11:42] LABS: APPEARANCE, URINE CLEAR (CLEAR); BACTERIA, URINE AUTO NEGATIVE (NEGATIVE); BILIRUBIN, URINE AUTO NEGATIVE (NEGATIVE); BLOOD, URINE BLOOD NEGATIVE (NEGATIVE); COLOR, URINE YELLOW (YELLOW); GLUCOSE, URINE (UA) AUTO NEGATIVE (NEGATIVE); KETONE, URINE AUTO NEGATIVE (NEGATIVE); LEUKOCYTE ESTERASE, URINE AUTO NEGATIVE (NEGATIVE); NITRITE, URINE AUTO NEGATIVE (NEGATIVE); PROTEIN, URINE AUTO NEGATIVE (NEGATIVE); RBC, URINE AUTO 2 /HPF (0-3); SPECIFIC GRAVITY URINE AUTO 1.012 (1.002-1.035); SQUAMOUS EPITHELIAL CELL UR AU 0 /HPF (0-6); UROBILINOGEN, URINE AUTO 0.2 mg/dL (0.0-2.0); WBC, URINE AUTO 2 /HPF (0-3)
== END ==
LOC: M SMT 09:51
PROVIDERS: ATTEND Urology
DX: R31.29 Other microscopic hematuria (principal)

== ENCOUNTER → 2023-10-22 | Outpatient (REF) | payer MEDICARE, BC ==
[2023-10-22 12:23] LABS: BLOOD UREA NITROGEN 14 MG/DL (9-23); CALCIUM LEVEL 9.8 MG/DL (8.3-10.6); CARBON DIOXIDE LEVEL 33 MMOL/L (20-31); CHLORIDE LEVEL 97 MMOL/L (98-107); CREATININE FOR GFR 0.69 MG/DL (0.55-1.30); GLOMERULAR FILTRATION RATE > 60.0 (>39); GLUCOSE, FASTING 98 MG/DL (74-106); POTASSIUM SERUM 3.9 MMOL/L (3.5-5.1); SODIUM LEVEL 135 MMOL/L (136-145)
== END ==
LOC: M SFHCCLAY 08:09
PROVIDERS: ATTEND Urology
DX: R31.29 Other microscopic hematuria (principal)

== ENCOUNTER → 2023-10-26 | Outpatient (CLI) | payer MEDICARE, BC, OTHER ==
[~2023-10-26] MED LIST changes: +ISOVUE-370 76% 100ML VIAL As Ordered ONE
== END ==
LOC: M RAD 13:25
PROVIDERS: ATTEND Urology
DX: N28.1 Cyst of kidney, acquired (principal); R31.29 Other microscopic hematuria
CPT/HCPCS: 74178; Q9967

== ENCOUNTER → 2023-11-28 | Outpatient (REF) | payer MEDICARE, BC, OTHER ==
[~2023-11-28] MED LIST changes: -ISOVUE-370 76% 100ML VIAL As Ordered ONE
[2023-11-28 16:06] LABS: APPEARANCE, URINE CLEAR (CLEAR); BACTERIA, URINE AUTO NEGATIVE (NEGATIVE); BILIRUBIN, URINE AUTO NEGATIVE (NEGATIVE); BLOOD, URINE BLOOD NEGATIVE (NEGATIVE); COLOR, URINE YELLOW (YELLOW); GLUCOSE, URINE (UA) AUTO NEGATIVE (NEGATIVE); KETONE, URINE AUTO NEGATIVE (NEGATIVE); LEUKOCYTE ESTERASE, URINE AUTO NEGATIVE (NEGATIVE); NITRITE, URINE AUTO NEGATIVE (NEGATIVE); PROTEIN, URINE AUTO NEGATIVE (NEGATIVE); RBC, URINE AUTO 3 /HPF (0-3); SPECIFIC GRAVITY URINE AUTO 1.013 (1.002-1.035); SQUAMOUS EPITHELIAL CELL UR AU 0 /HPF (0-6); UROBILINOGEN, URINE AUTO 0.2 mg/dL (0.0-2.0); WBC, URINE AUTO 0 /HPF (0-3)
== END ==
LOC: M SMT 15:27
PROVIDERS: ATTEND Urology
DX: R31.29 Other microscopic hematuria (principal)

== ENCOUNTER 2024-01-21 18:22 | Observation (INO) | payer MEDICARE, BC, OTHER ==
[~2024-01-21] VITALS: Ht 162.6 cm; Wt 68.1 kg
[~2024-01-21 18:22] MED LIST changes: +IRBE75TA11 PO; -IRBE75TA4; -SYNT125T; +SYNT125T PO
[2024-01-21 19:35] LABS: BASO # 0.1 10^3/uL (0.0-0.2); BASO % 0.7 % (0.0-1.0); EOS # 0.3 10^3/uL (0.0-0.5); EOS % 3.6 % (0.0-3.0); LYMPH # 0.7 10^3/uL (1.5-5.0); LYMPH % 9.8 % (24.0-44.0); MEAN CORPUSCULAR HEMOGLOBIN 30.1 pg (27.0-33.0); MEAN CORPUSCULAR HGB CONC 34.3 g/dl (32.0-36.5); MEAN CORPUSCULAR VOLUME 87.7 fl (80.0-96.0); MONO # 0.5 10^3/uL (0.0-0.8); MONO % 7.3 % (2.0-8.0); NEUTROPHILS # 5.5 10^3/uL (1.5-8.5); NEUTROPHILS % 78.5 % (36.0-66.0); PLATELET COUNT, AUTOMATED 304 10^3/uL (150-450); RED BLOOD COUNT 3.99 10^6/uL (4.00-5.40)
[2024-01-21 19:48] LABS: PARTIAL THROMBOPLASTIN TIME 23.9 SECONDS (24.8-34.2); PROTHROMBIN TIME 12.9 SECONDS (12.5-14.5)
[2024-01-21] MEDS ORDERED: ISOVUE-370 76% 100ML VIAL As Ordered ONE (19:58)
[2024-01-21 20:42] LABS: THYROID STIMULATING HORMONE 0.149 uIU/ML (0.55-4.78)
[2024-01-21 20:48] LABS: BLOOD UREA NITROGEN 11 MG/DL (9-23); CALCIUM LEVEL 8.9 MG/DL (8.3-10.6); CARBON DIOXIDE LEVEL 28 MMOL/L (20-31); CHLORIDE LEVEL 99 MMOL/L (98-107); CK-MB VALUE MASS 1.3 NG/ML (<3.6); CPK CREATINE PHOSPHOKINASE 94 U/L (34-145); CREATININE FOR GFR 0.62 MG/DL (0.55-1.30); GLOMERULAR FILTRATION RATE > 60.0 (>39); GLUCOSE, FASTING 117 MG/DL (74-106); MAGNESIUM LEVEL 1.8 MG/DL (1.8-2.4); MB/CK RELATIVE INDEX 1.38 (< OR =4); POTASSIUM SERUM 4.2 MMOL/L (3.5-5.1); SODIUM LEVEL 129 MMOL/L (136-145)
[2024-01-21] MEDS ORDERED: ACETAMINOPHEN TAB 650MG DOSE (2X325MG) PO PRN (22:00)
[2024-01-21 22:10] LABS: RSV AMPLIFICATION NEGATIVE (NEGATIVE)
[2024-01-21] MEDS ORDERED: DULO60CA35 PO (22:58)
[2024-01-21] MEDS ORDERED: META58.68 PO (22:58)
[2024-01-21] MEDS: LACTATED RINGER'S 1000 ML IV ONE (23:14)
[2024-01-21] MEDS: POTASSIUM CHLORIDE 10MEQ SR TABLET PO ONE (23:14)
[2024-01-21] MEDS ORDERED: HOME MED LIST COMPLETE! XX SCH ×2 (23:25→23:35)
[2024-01-21] MEDS ORDERED: SYST1SOL OU (23:34)
[2024-01-22] MEDS ORDERED: METAMUCIL (PSYLLIUM) PACKET PO PRN
[2024-01-22] MEDS ORDERED: ARTIFICIAL TEARS DROPS 15ML BTL (VISINE DRY RELIEF) OU SA PRN (00:20)
[2024-01-22 01:02] VITALS: BP 129/75; TEMP 97.9; O2SAT 96
[2024-01-22] MEDS ORDERED: PILL CUTTER 1 EACH XX PRN (01:15)
[2024-01-22 06:11] VITALS: BP 159/82; TEMP 97.9; O2SAT 97
[2024-01-22 06:29] LABS: BLOOD UREA NITROGEN 11 MG/DL (9-23); CALCIUM LEVEL 9.4 MG/DL (8.3-10.6); CARBON DIOXIDE LEVEL 30 MMOL/L (20-31); CHLORIDE LEVEL 102 MMOL/L (98-107); CREATININE FOR GFR 0.54 MG/DL (0.55-1.30); GLOMERULAR FILTRATION RATE > 60.0 (>39); GLUCOSE, FASTING 112 MG/DL (74-106); POTASSIUM SERUM 3.5 MMOL/L (3.5-5.1); SODIUM LEVEL 135 MMOL/L (136-145)
[2024-01-22] MEDS: LEVOTHYROXINE 125MCG TABLET (0.125MG) PO SCH (06:32)
[2024-01-22] MEDS: PANTOPRAZOLE 40MG TAB (PROTONIX) PO SCH (08:42)
[2024-01-22] MEDS: HYDROXYCHLOROQUINE 200 MG TAB PO SCH (08:42)
[2024-01-22] MEDS: DULoxetine 20MG CAP (CYMBALTA) PO SCH (08:42)
[2024-01-22] MEDS ORDERED: CHLORTHALIDONE 25 MG TAB PO SCH (09:00)
[2024-01-22] MEDS ORDERED: DULoxetine 30MG CAPSULE (CYMBALTA) PO SCH (09:00)
[2024-01-22] MEDS ORDERED: ENOXAPARIN 40MG/0.4ML SYRINGE (J1650 PER 10MG) SC SCH (09:00)
[2024-01-22 11:34] VITALS: BP 144/78
[2024-01-22] MEDS: amLODIPine 5 MG TAB PO SCH (11:34)
[2024-01-22 14:00] VITALS: BP 154/82; TEMP 97.9; O2SAT 96
[2024-01-22] MEDS ORDERED: LEVO100T5 PO (14:16)
[2024-01-22] MEDS ORDERED: AMLO1TAB24 PO (14:16)
[2024-01-22] MEDS ORDERED: IRBESARTAN 150MG TAB PO SCH (21:00)
[2024-01-22] MEDS ORDERED: PRAVASTATIN 20 MG TAB PO SCH (21:00)
[2024-01-22] MEDS ORDERED: DULoxetine 20MG CAP (CYMBALTA) PO SCH (21:00)
[2024-01-23] MEDS ORDERED: LEVOTHYROXINE 100MCG TABLET (0.1MG) PO SCH (06:00)
[2024-01-23] MEDS ORDERED: HYDROXYCHLOROQUINE 200 MG TAB PO SCH (09:00)
== END 2024-01-22 15:57 | disposition home or self-care (01) ==
LOC: M ED 18:22 → M ED INP 18:23 → M MSPAV 01-22 01:02
PROVIDERS: ADMIT Internal Medicine; ATTEND Internal Medicine
DX: R55 Syncope and collapse (principal); M35.00 Sjogren syndrome, unspecified; E78.5 Hyperlipidemia, unspecified; I10 Essential (primary) hypertension; G47.33 Obstructive sleep apnea (adult) (pediatric); G25.81 Restless legs syndrome; F32.A Depression, unspecified; M79.7 Fibromyalgia; E03.9 Hypothyroidism, unspecified; Z79.899 Other long term (current) drug therapy; Z88.8 Allergy status to other drugs, medicaments and biological substances
CPT/HCPCS: 36415; 70450; 71045; 71275; 72125; 74177; 80047; 80048; 82550; 82553; 83735; 84132; 84439; 84443; 84484; 85025; 85610; 85730; 87631; 93005; 93041; 93306; 94760; 96374; 97116; 97161; 97165; 97530; 99285; G0378; Q9967

== ENCOUNTER → 2024-02-11 | Outpatient (CLI) | payer MEDICARE, BC, OTHER ==
[~2024-02-11] MED LIST changes: +AMLO1TAB24 PO; +DULO60CA35 PO; +META58.68 PO; +SYST1SOL OU
== END ==
LOC: M SLEEP 20:00
PROVIDERS: ATTEND Physician Assistant
DX: G47.61 Periodic limb movement disorder (principal)

== ENCOUNTER → 2024-02-18 | Outpatient (REF) | payer MEDICARE, OTHER ==
[2024-02-18 12:11] LABS: BASO # 0.1 10^3/uL (0.0-0.2); BASO % 0.9 % (0.0-1.0); EOS # 0.4 10^3/uL (0.0-0.5); EOS % 5.8 % (0.0-3.0); HEMOGLOBIN 13.2 g/dl (12.0-15.5); LYMPH % 14.8 % (24.0-44.0); MEAN CORPUSCULAR HEMOGLOBIN 29.5 pg (27.0-33.0); MEAN CORPUSCULAR HGB CONC 32.2 g/dl (32.0-36.5); MEAN CORPUSCULAR VOLUME 91.7 fl (80.0-96.0); MONO # 0.5 10^3/uL (0.0-0.8); MONO % 7.7 % (2.0-8.0); NEUTROPHILS # 4.8 10^3/uL (1.5-8.5); NEUTROPHILS % 70.7 % (36.0-66.0); PLATELET COUNT, AUTOMATED 336 10^3/uL (150-450); RED BLOOD COUNT 4.47 10^6/uL (4.00-5.40); WHITE BLOOD COUNT 6.8 10^3/uL (4.0-10.0)
[2024-02-18 12:23] LABS: APPEARANCE, URINE CLEAR (CLEAR); BACTERIA, URINE AUTO NEGATIVE (NEGATIVE); BILIRUBIN, URINE AUTO NEGATIVE (NEGATIVE); BLOOD, URINE BLOOD 1+ (NEGATIVE); COLOR, URINE YELLOW (YELLOW); GLUCOSE, URINE (UA) AUTO NEGATIVE (NEGATIVE); KETONE, URINE AUTO NEGATIVE (NEGATIVE); LEUKOCYTE ESTERASE, URINE AUTO NEGATIVE (NEGATIVE); MUCUS, URINE SMALL (NEGATIVE); NITRITE, URINE AUTO NEGATIVE (NEGATIVE); PROTEIN, URINE AUTO NEGATIVE (NEGATIVE); RBC, URINE AUTO 4 /HPF (0-3); SPECIFIC GRAVITY URINE AUTO 1.012 (1.002-1.035); SQUAMOUS EPITHELIAL CELL UR AU 0 /HPF (0-6); UROBILINOGEN, URINE AUTO 0.2 mg/dL (0.0-2.0); WBC, URINE AUTO 4 /HPF (0-3)
[2024-02-18 12:35] LABS: TOTAL PROTEIN,RANDOM URINE 12.1 MG/DL (0.0-14.0)
[2024-02-18 12:39] LABS: C REACTIVE PROTEIN QUANTITATIV < 0.40 MG/DL (<1.0)
[2024-02-18 12:40] LABS: CREATININE,RANDOM URINE 67.6 MG/DL
[2024-02-18 12:42] LABS: ALBUMIN 3.8 G/DL (3.2-5.2); ALKALINE PHOSPHATASE 63 U/L (46-116); ALT/SGPT 17 U/L (7.0-40); AST/SGOT 15 U/L (<34); BILIRUBIN,TOTAL 0.6 MG/DL (0.3-1.2); BLOOD UREA NITROGEN 12 MG/DL (9-23); CALCIUM LEVEL 9.7 MG/DL (8.3-10.6); CARBON DIOXIDE LEVEL 33 MMOL/L (20-31); CHLORIDE LEVEL 107 MMOL/L (98-107); CREATININE FOR GFR 0.71 MG/DL (0.55-1.30); GLOMERULAR FILTRATION RATE > 60.0 (>39); GLUCOSE, FASTING 91 MG/DL (74-106); POTASSIUM SERUM 4.1 MMOL/L (3.5-5.1); SODIUM LEVEL 142 MMOL/L (136-145); TOTAL PROTEIN 6.6 G/DL (5.7-8.2)
[2024-02-18 12:44] LABS: COMPLEMENT C3 132.3 MG/DL (90.0-170.0); COMPLEMENT C4 31.1 MG/DL (12-36)
[2024-02-18 14:41] LABS: ERYTHROCYTE SEDIMENTATION RATE 13 mm/hr (0-30)
[2024-02-19 15:08] LABS: COMPLEMENT TOTAL (CH50) > 60 U/mL (>41)
[2024-02-21 23:07] LABS: ANTI DS-DNA AB Negative (Negative)
== END ==
LOC: M SFHCCLAY 09:03
PROVIDERS: ATTEND Internal Medicine Rheumatology
DX: M35.00 Sjogren syndrome, unspecified (principal); I73.00 Raynaud's syndrome without gangrene; M15.4 Erosive (osteo)arthritis; Z79.899 Other long term (current) drug therapy; R31.21 Asymptomatic microscopic hematuria

== ENCOUNTER → 2024-02-26 | Outpatient (REF) | payer MEDICARE, OTHER | LOC: M SFHCRHEU 11:07 | PROVIDERS: ATTEND Internal Medicine Rheumatology | DX: M35.00 Sjogren syndrome, unspecified (principal); I73.00 Raynaud's syndrome without gangrene; M15.4 Erosive (osteo)arthritis; Z79.899 Other long term (current) drug therapy; R31.21 Asymptomatic microscopic hematuria; R31.29 Other microscopic hematuria ==

== ENCOUNTER → 2024-02-27 | Outpatient (REF) | payer MEDICARE, BC ==
[2024-02-27 18:07] LABS: MEAN CORPUSCULAR HEMOGLOBIN 29.5 pg (27.0-33.0); MEAN CORPUSCULAR HGB CONC 32.5 g/dl (32.0-36.5); MEAN CORPUSCULAR VOLUME 90.7 fl (80.0-96.0); PLATELET COUNT, AUTOMATED 319 10^3/uL (150-450); RED BLOOD COUNT 4.41 10^6/uL (4.00-5.40); WHITE BLOOD COUNT 7.7 10^3/uL (4.0-10.0)
[2024-02-27 18:35] LABS: BLOOD UREA NITROGEN 17 MG/DL (9-23); CALCIUM LEVEL 10.1 MG/DL (8.3-10.6); CARBON DIOXIDE LEVEL 28 MMOL/L (20-31); CHLORIDE LEVEL 102 MMOL/L (98-107); CREATININE FOR GFR 0.69 MG/DL (0.55-1.30); FREE T4 1.11 NG/DL (0.89-1.76); GLOMERULAR FILTRATION RATE > 60.0 (>39); GLUCOSE, FASTING 87 MG/DL (74-106); MAGNESIUM LEVEL 2.1 MG/DL (1.8-2.4); POTASSIUM SERUM 4.1 MMOL/L (3.5-5.1); SODIUM LEVEL 136 MMOL/L (136-145); THYROID STIMULATING HORMONE 3.056 uIU/ML (0.55-4.78)
== END ==
LOC: M SFHCADAM 13:24
PROVIDERS: ATTEND Family Medicine
DX: I47.10 Supraventricular tachycardia, unspecified (principal); E87.1 Hypo-osmolality and hyponatremia; E89.0 Postprocedural hypothyroidism

== ENCOUNTER → 2024-04-09 | Outpatient (REF) | payer MEDICARE, BC ==
[2024-04-09 14:33] LABS: CHOLESTEROL RISK RATIO 2.55 (<5); HDL CHOLESTEROL 83.3 MG/DL (>40); LDL CHOLESTEROL 114.1 MG/DL (<100); NON-HDL-C 129.7 MG/DL
[2024-04-09 14:34] LABS: PTH INTACT 71.3 PG/ML (18.5-88.0); THYROID STIMULATING HORMONE 2.301 uIU/ML (0.55-4.78)
[2024-04-09 14:35] LABS: FREE T4 1.44 NG/DL (0.89-1.76)
[2024-04-09 14:40] LABS: HEMOGLOBIN 12.7 g/dl (12.0-15.5); MEAN CORPUSCULAR HEMOGLOBIN 29.1 pg (27.0-33.0); MEAN CORPUSCULAR HGB CONC 31.8 g/dl (32.0-36.5); MEAN CORPUSCULAR VOLUME 91.5 fl (80.0-96.0); PLATELET COUNT, AUTOMATED 324 10^3/uL (150-450); RED BLOOD COUNT 4.37 10^6/uL (4.00-5.40); WHITE BLOOD COUNT 6.6 10^3/uL (4.0-10.0)
[2024-04-09 15:06] LABS: HEMOGLOBIN A1c 5.5 % (4.0-6.0)
== END ==
LOC: M SFHCADAM 08:44
PROVIDERS: ATTEND Family Medicine
DX: E21.0 Primary hyperparathyroidism (principal); M85.80 Other specified disorders of bone density and structure, unspecified site; F32.9 Major depressive disorder, single episode, unspecified; E78.5 Hyperlipidemia, unspecified; E89.0 Postprocedural hypothyroidism; Z13.1 Encounter for screening for diabetes mellitus

== ENCOUNTER → 2024-06-03 | Outpatient (REF) | payer MEDICARE, BC ==
[2024-06-03 17:25] LABS: APPEARANCE, URINE CLEAR (CLEAR); BACTERIA, URINE AUTO NEGATIVE (NEGATIVE); BILIRUBIN, URINE AUTO NEGATIVE (NEGATIVE); BLOOD, URINE BLOOD NEGATIVE (NEGATIVE); COLOR, URINE YELLOW (YELLOW); GLUCOSE, URINE (UA) AUTO NEGATIVE (NEGATIVE); KETONE, URINE AUTO TRACE mg/dL (NEGATIVE); LEUKOCYTE ESTERASE, URINE AUTO NEGATIVE (NEGATIVE); NITRITE, URINE AUTO NEGATIVE (NEGATIVE); PROTEIN, URINE AUTO NEGATIVE (NEGATIVE); RBC, URINE AUTO 2 /HPF (0-3); SPECIFIC GRAVITY URINE AUTO 1.008 (1.002-1.035); SQUAMOUS EPITHELIAL CELL UR AU 0 /HPF (0-6); UROBILINOGEN, URINE AUTO 0.2 mg/dL (0.0-2.0); WBC, URINE AUTO 0 /HPF (0-3)
== END ==
LOC: M SMT 16:59
PROVIDERS: ATTEND Urology
DX: R31.29 Other microscopic hematuria (principal)
CPT/HCPCS: 81001; 88108; G0463

== ENCOUNTER 2024-08-19 11:22 | Day surgery (SDC) | payer MEDICARE, BC ==
[~2024-08-19] VITALS: Ht 165.1 cm; Wt 64.0 kg
[~2024-08-19 11:22] MED LIST changes: +LEVO100C PO; +THERTAB52 PO; +VITA100093 PO
[2024-08-19] MEDS ORDERED: propofoL 200 MG/20 ML VIAL As Ordered ONE (11:37)
[2024-08-19] MEDS ORDERED: LIDOCAINE 2% 100MG/5ML SDV (FOR ANES.) As Ordered ONE (11:37)
[2024-08-19] MEDS: LR 1,000 ML IV SCH (12:20)
[2024-08-19] MEDS: ceFAZolin 2 GM/D5W 50 ML IV BAG As Ordered ONE (12:55)
[2024-08-19] MEDS: LIDOCAINE 1% SDV 30ML VIAL As Ordered ONE (13:05)
[2024-08-19] MEDS: IRBESARTAN 150MG TAB PO SCH (13:34)
[2024-08-19 13:52] VITALS: TEMP 97.2
[2024-08-19 14:40] VITALS: BP 148/84; O2SAT 100
== END 2024-08-19 14:50 | disposition home or self-care (01) ==
LOC: M SDC 11:22
PROVIDERS: ATTEND Internal Medicine Cardiovascular Disease
DX: R55 Syncope and collapse (principal); I47.19 Other supraventricular tachycardia; I10 Essential (primary) hypertension; E78.5 Hyperlipidemia, unspecified; E03.9 Hypothyroidism, unspecified; K58.8 Other irritable bowel syndrome; K21.9 Gastro-esophageal reflux disease without esophagitis; M81.0 Age-related osteoporosis without current pathological fracture; Z88.8 Allergy status to other drugs, medicaments and biological substances; Z79.899 Other long term (current) drug therapy; F41.9 Anxiety disorder, unspecified; F32.A Depression, unspecified
CPT/HCPCS: 33285; C1764; J0690

== ENCOUNTER → 2024-09-16 | Outpatient (REF) | payer MEDICARE, BC | LOC: M SFHCRHEU 11:41 | PROVIDERS: ATTEND Internal Medicine Rheumatology | DX: M35.9 Systemic involvement of connective tissue, unspecified (principal); M35.00 Sjogren syndrome, unspecified; I73.00 Raynaud's syndrome without gangrene; M15.4 Erosive (osteo)arthritis; Z79.899 Other long term (current) drug therapy; R31.21 Asymptomatic microscopic hematuria; R31.29 Other microscopic hematuria; Z53.9 Procedure and treatment not carried out, unspecified reason ==

== ENCOUNTER → 2024-09-29 | Outpatient (REF) | payer MEDICARE, BC ==
[2024-09-29 12:29] LABS: APPEARANCE, URINE CLEAR (CLEAR); BACTERIA, URINE AUTO NEGATIVE (NEGATIVE); BILIRUBIN, URINE AUTO NEGATIVE (NEGATIVE); BLOOD, URINE BLOOD NEGATIVE (NEGATIVE); COLOR, URINE YELLOW (YELLOW); GLUCOSE, URINE (UA) AUTO NEGATIVE (NEGATIVE); KETONE, URINE AUTO NEGATIVE (NEGATIVE); LEUKOCYTE ESTERASE, URINE AUTO NEGATIVE (NEGATIVE); NITRITE, URINE AUTO NEGATIVE (NEGATIVE); PROTEIN, URINE AUTO NEGATIVE (NEGATIVE); RBC, URINE AUTO 1 /HPF (0-3); SPECIFIC GRAVITY URINE AUTO 1.011 (1.002-1.035); SQUAMOUS EPITHELIAL CELL UR AU 0 /HPF (0-6); UROBILINOGEN, URINE AUTO 0.2 mg/dL (0.0-2.0); WBC, URINE AUTO 1 /HPF (0-3)
[2024-09-29 13:23] LABS: TOTAL PROTEIN,RANDOM URINE 18.4 MG/DL (0.0-14.0)
[2024-09-29 13:25] LABS: BASO # 0.1 10^3/uL (0.0-0.2); BASO % 0.8 % (0.0-1.0); EOS # 0.2 10^3/uL (0.0-0.5); EOS % 2.9 % (0.0-3.0); HEMATOCRIT 39.2 % (36.0-47.0); LYMPH # 0.7 10^3/uL (1.5-5.0); LYMPH % 10.1 % (24.0-44.0); MEAN CORPUSCULAR HGB CONC 33.2 g/dl (32.0-36.5); MEAN CORPUSCULAR VOLUME 90.5 fl (80.0-96.0); MONO # 0.5 10^3/uL (0.0-0.8); MONO % 7.5 % (2.0-8.0); NEUTROPHILS # 5.7 10^3/uL (1.5-8.5); NEUTROPHILS % 78.3 % (36.0-66.0); PLATELET COUNT, AUTOMATED 348 10^3/uL (150-450); RED BLOOD COUNT 4.33 10^6/uL (4.00-5.40); WHITE BLOOD COUNT 7.2 10^3/uL (4.0-10.0)
[2024-09-29 13:28] LABS: CREATININE,RANDOM URINE 53.9 MG/DL
[2024-09-29 13:32] LABS: ERYTHROCYTE SEDIMENTATION RATE 18 mm/hr (0-30)
[2024-09-29 13:35] LABS: C REACTIVE PROTEIN QUANTITATIV < 0.40 MG/DL (<1.0)
[2024-09-29 13:37] LABS: ALBUMIN 3.9 G/DL (3.2-5.2); ALKALINE PHOSPHATASE 73 U/L (35-104); ALT/SGPT 19 U/L (7.0-40); AST/SGOT 20 U/L (<34); BILIRUBIN,TOTAL 0.5 MG/DL (0.3-1.2); BLOOD UREA NITROGEN 14 MG/DL (9-23); CALCIUM LEVEL 10.4 MG/DL (8.3-10.6); CARBON DIOXIDE LEVEL 32 MMOL/L (20-31); CHLORIDE LEVEL 97 MMOL/L (98-107); COMPLEMENT C3 129.6 MG/DL (90.0-170.0); CREATININE FOR GFR 0.62 MG/DL (0.55-1.30); GLOMERULAR FILTRATION RATE > 60.0 (>39); GLUCOSE, FASTING 91 MG/DL (74-106); POTASSIUM SERUM 3.9 MMOL/L (3.5-5.1); SODIUM LEVEL 133 MMOL/L (136-145); TOTAL PROTEIN 7.2 G/DL (5.7-8.2)
== END ==
LOC: M LABDRAWC 11:29
PROVIDERS: ATTEND Internal Medicine Rheumatology
DX: M35.00 Sjogren syndrome, unspecified (principal); I73.00 Raynaud's syndrome without gangrene; M15.4 Erosive (osteo)arthritis; Z79.899 Other long term (current) drug therapy; R31.21 Asymptomatic microscopic hematuria

== ENCOUNTER → 2024-12-05 | Outpatient (REF) | payer MEDICARE, BC ==
[2024-12-05 18:16] LABS: HEMATOCRIT 41.9 % (36.0-47.0); HEMOGLOBIN 13.7 g/dl (12.0-15.5); MEAN CORPUSCULAR HGB CONC 32.7 g/dl (32.0-36.5); MEAN CORPUSCULAR VOLUME 88.8 fl (80.0-96.0); PLATELET COUNT, AUTOMATED 376 10^3/uL (150-450); RED BLOOD COUNT 4.72 10^6/uL (4.00-5.40); WHITE BLOOD COUNT 8.3 10^3/uL (4.0-10.0)
[2024-12-05 18:19] LABS: HEMOGLOBIN A1c 5.6 % (4.0-6.0)
[2024-12-05 18:38] LABS: ALBUMIN 4.1 G/DL (3.2-5.2); ALKALINE PHOSPHATASE 69 U/L (35-104); ALT/SGPT 21 U/L (7.0-40); AST/SGOT 23 U/L (<34); BILIRUBIN,TOTAL 0.8 MG/DL (0.3-1.2); BLOOD UREA NITROGEN 13 MG/DL (9-23); CALCIUM LEVEL 10.9 MG/DL (8.3-10.6); CARBON DIOXIDE LEVEL 31 MMOL/L (20-31); CHLORIDE LEVEL 95 MMOL/L (98-107); CHOLESTEROL LEVEL 227 MG/DL (<200); CREATININE FOR GFR 0.67 MG/DL (0.55-1.30); GLOMERULAR FILTRATION RATE > 60.0 (>39); GLUCOSE, FASTING 81 MG/DL (74-106); HDL CHOLESTEROL 102.9 MG/DL (>40); LDL CHOLESTEROL 112.9 MG/DL (<100); NON-HDL-C 124.1 MG/DL; POTASSIUM SERUM 3.8 MMOL/L (3.5-5.1); SODIUM LEVEL 135 MMOL/L (136-145); TOTAL PROTEIN 7.5 G/DL (5.7-8.2); TRIGLYCERIDES LEVEL 56 MG/DL (<150)
[2024-12-05 18:39] LABS: FREE T4 1.24 NG/DL (0.89-1.76); THYROID STIMULATING HORMONE 2.802 uIU/ML (0.55-4.78)
[2024-12-05 18:40] LABS: TOTAL 25(OH) VITAMIN D 30.6 NG/ML (20.0-100.0)
== END ==
LOC: M SFHCADAM 13:59
PROVIDERS: ATTEND Family Medicine
DX: E78.5 Hyperlipidemia, unspecified (principal); F32.9 Major depressive disorder, single episode, unspecified; I47.10 Supraventricular tachycardia, unspecified; E89.0 Postprocedural hypothyroidism; E87.1 Hypo-osmolality and hyponatremia; Z13.1 Encounter for screening for diabetes mellitus; M85.80 Other specified disorders of bone density and structure, unspecified site

== ENCOUNTER → 2024-12-29 | Outpatient (REF) | payer MEDICARE, BC ==
[2024-12-29 13:25] LABS: BASO # 0.1 10^3/uL (0.0-0.2); BASO % 1.1 % (0.0-1.0); EOS # 0.3 10^3/uL (0.0-0.5); EOS % 4.6 % (0.0-3.0); HEMATOCRIT 39.9 % (36.0-47.0); HEMOGLOBIN 13.1 g/dl (12.0-15.5); LYMPH # 0.9 10^3/uL (1.5-5.0); LYMPH % 14.1 % (24.0-44.0); MEAN CORPUSCULAR HEMOGLOBIN 29.5 pg (27.0-33.0); MEAN CORPUSCULAR HGB CONC 32.8 g/dl (32.0-36.5); MEAN CORPUSCULAR VOLUME 89.9 fl (80.0-96.0); MONO # 0.4 10^3/uL (0.0-0.8); MONO % 6.9 % (2.0-8.0); NEUTROPHILS # 4.5 10^3/uL (1.5-8.5); PLATELET COUNT, AUTOMATED 358 10^3/uL (150-450); RED BLOOD COUNT 4.44 10^6/uL (4.00-5.40); WHITE BLOOD COUNT 6.1 10^3/uL (4.0-10.0)
[2024-12-29 13:32] LABS: ERYTHROCYTE SEDIMENTATION RATE 19 mm/hr (0-30)
[2024-12-29 13:49] LABS: C REACTIVE PROTEIN QUANTITATIV < 0.50 MG/DL (<1.0); COMPLEMENT C3 131.4 MG/DL (90.0-170.0); COMPLEMENT C4 29.8 MG/DL (12-36)
[2024-12-29 13:52] LABS: ALBUMIN 3.8 G/DL (3.2-5.2); ALKALINE PHOSPHATASE 55 U/L (35-104); ALT/SGPT 17 U/L (7.0-40); AST/SGOT 22 U/L (<34); BILIRUBIN,TOTAL 0.7 MG/DL (0.3-1.2); BLOOD UREA NITROGEN 17 MG/DL (9-23); CALCIUM LEVEL 9.8 MG/DL (8.3-10.6); CARBON DIOXIDE LEVEL 31 MMOL/L (20-31); CHLORIDE LEVEL 97 MMOL/L (98-107); CREATININE FOR GFR 0.75 MG/DL (0.55-1.30); GLOMERULAR FILTRATION RATE > 60.0 (>39); GLUCOSE, FASTING 98 MG/DL (74-106); POTASSIUM SERUM 4.5 MMOL/L (3.5-5.1); SODIUM LEVEL 137 MMOL/L (136-145); TOTAL PROTEIN 6.8 G/DL (5.7-8.2)
[2024-12-29 17:40] LABS: APPEARANCE, URINE CLEAR (CLEAR); BACTERIA, URINE AUTO NEGATIVE (NEGATIVE); BILIRUBIN, URINE AUTO NEGATIVE (NEGATIVE); BLOOD, URINE BLOOD 1+ (NEGATIVE); COLOR, URINE YELLOW (YELLOW); GLUCOSE, URINE (UA) AUTO NEGATIVE (NEGATIVE); KETONE, URINE AUTO NEGATIVE (NEGATIVE); LEUKOCYTE ESTERASE, URINE AUTO NEGATIVE (NEGATIVE); MUCUS, URINE SMALL (NEGATIVE); NITRITE, URINE AUTO NEGATIVE (NEGATIVE); PROTEIN, URINE AUTO NEGATIVE (NEGATIVE); RBC, URINE AUTO 6 /HPF (0-3); SPECIFIC GRAVITY URINE AUTO 1.015 (1.002-1.035); SQUAMOUS EPITHELIAL CELL UR AU 0 /HPF (0-6); UROBILINOGEN, URINE AUTO 0.2 mg/dL (0.0-2.0); WBC, URINE AUTO 1 /HPF (0-3)
[2024-12-29 17:59] LABS: TOTAL PROTEIN,RANDOM URINE 20.9 MG/DL (0.0-14.0)
[2024-12-29 18:04] LABS: CREATININE,RANDOM URINE 92.4 MG/DL
== END ==
LOC: M SFHCCLAY 09:02
PROVIDERS: ATTEND Family Medicine
DX: M35.00 Sjogren syndrome, unspecified (principal); I73.00 Raynaud's syndrome without gangrene; M15.4 Erosive (osteo)arthritis; Z79.899 Other long term (current) drug therapy; R31.21 Asymptomatic microscopic hematuria; R31.29 Other microscopic hematuria

== ENCOUNTER → 2025-01-13 | Outpatient (CLI) | payer MEDICARE, BC ==
[~2025-01-13] VITALS: Ht 167.6 cm; Wt 64.1 kg
[~2025-01-13] MED LIST changes: +ZOLEDRONIC ACID 5 MG in IV 1 EA IV ONE
[2025-01-13 14:00] VITALS: BP 160/77; O2SAT 97
[2025-01-13] MEDS: ZOLEDRONIC ACID 5 MG in IV 1 EA IV ONE (14:09)
[2025-01-13 14:50] VITALS: BP 138/78; O2SAT 100
== END ==
LOC: M INFU 13:31
PROVIDERS: ATTEND Family Medicine
DX: M85.80 Other specified disorders of bone density and structure, unspecified site (principal); Z88.6 Allergy status to analgesic agent; Z88.8 Allergy status to other drugs, medicaments and biological substances
CPT/HCPCS: 96413; J3489

== ENCOUNTER → 2025-07-20 | Outpatient (REF) | payer MEDICARE, BC ==
[~2025-07-20] MED LIST changes: -LEVO100C PO; +LEVO100C2 PO; -PRAV40TA2 PO; +PRAV40TA85 PO; -ZOLEDRONIC ACID 5 MG in IV 1 EA IV ONE
[2025-07-20 12:53] LABS: ALT/SGPT 15 U/L (7.0-40); AST/SGOT 20 U/L (<34); C REACTIVE PROTEIN QUANTITATIV < 0.50 MG/DL (<1.0); CALCIUM LEVEL 10.1 MG/DL (8.3-10.6); CARBON DIOXIDE LEVEL 33 MMOL/L (20-31); CHLORIDE LEVEL 96 MMOL/L (98-107); COMPLEMENT C4 30.8 MG/DL (12-36); CREATININE FOR GFR 0.67 MG/DL (0.55-1.30); GLOMERULAR FILTRATION RATE > 90.0 (>39); POTASSIUM SERUM 3.9 MMOL/L (3.5-5.1); SODIUM LEVEL 135 MMOL/L (136-145)
[2025-07-20 12:57] LABS: BASO # 0.1 10^3/uL (0.0-0.2); BASO % 0.7 % (0.0-1.0); EOS # 0.3 10^3/uL (0.0-0.5); EOS % 3.5 % (0.0-3.0); LYMPH # 0.9 10^3/uL (1.5-5.0); LYMPH % 10.3 % (24.0-44.0); MONO # 0.7 10^3/uL (0.0-0.8); MONO % 8.4 % (2.0-8.0); NEUTROPHILS # 6.5 10^3/uL (1.5-8.5); NEUTROPHILS % 77.0 % (36.0-66.0); PLATELET COUNT, AUTOMATED 372 10^3/uL (150-450)
[2025-07-20 13:06] LABS: ERYTHROCYTE SEDIMENTATION RATE 12 mm/hr (0-30)
[2025-07-20 18:04] LABS: APPEARANCE, URINE CLEAR (CLEAR); BACTERIA, URINE AUTO NEGATIVE (NEGATIVE); BILIRUBIN, URINE AUTO NEGATIVE (NEGATIVE); BLOOD, URINE BLOOD 1+ (NEGATIVE); GLUCOSE, URINE (UA) AUTO NEGATIVE (NEGATIVE); KETONE, URINE AUTO NEGATIVE (NEGATIVE); LEUKOCYTE ESTERASE, URINE AUTO NEGATIVE (NEGATIVE); NITRITE, URINE AUTO NEGATIVE (NEGATIVE); PROTEIN, URINE AUTO NEGATIVE (NEGATIVE); RBC, URINE AUTO 4 /HPF (0-3); SPECIFIC GRAVITY URINE AUTO 1.011 (1.002-1.035); SQUAMOUS EPITHELIAL CELL UR AU 1 /HPF (0-6); UROBILINOGEN, URINE AUTO 0.2 mg/dL (0.0-2.0); WBC, URINE AUTO 1 /HPF (0-3)
[2025-07-20 18:11] LABS: TOTAL PROTEIN,RANDOM URINE 13.6 MG/DL (0.0-14.0)
== END ==
LOC: M SFHCCLAY 09:05
PROVIDERS: ATTEND Internal Medicine Rheumatology
DX: M35.00 Sjogren syndrome, unspecified (principal); I73.00 Raynaud's syndrome without gangrene; M15.4 Erosive (osteo)arthritis; Z79.899 Other long term (current) drug therapy

== ENCOUNTER → 2025-10-06 | Outpatient (REF) | payer MEDICARE, BC ==
[2025-10-06 13:48] LABS: PLATELET COUNT, AUTOMATED 378 10^3/uL (150-450)
[2025-10-06 14:03] LABS: ESTIMATED AVERAGE GLUCOSE 117.0 MG/DL (60-110)
[2025-10-06 14:08] LABS: ALT/SGPT 17.0 U/L (7.0-40); AST/SGOT 24.0 U/L (<34); CALCIUM LEVEL 9.7 MG/DL (8.3-10.6); CARBON DIOXIDE LEVEL 31.0 MMOL/L (20-31); CHLORIDE LEVEL 90.0 MMOL/L (98-107); CHOLESTEROL LEVEL 231.0 MG/DL (<200); CHOLESTEROL RISK RATIO 2.62 (<5); CREATININE FOR GFR 0.79 MG/DL (0.55-1.30); GLOMERULAR FILTRATION RATE 77.0 (>39); LDL CHOLESTEROL 130.6 MG/DL (<100); NON-HDL-C 143.0 MG/DL; POTASSIUM SERUM 3.6 MMOL/L (3.5-5.1); PTH INTACT 81.8 PG/ML (18.5-88.0); SODIUM LEVEL 130.0 MMOL/L (136-145); TRIGLYCERIDES LEVEL 62.0 MG/DL (<150)
[2025-10-06 14:11] LABS: FREE T4 1.61 NG/DL (0.89-1.76)
== END ==
LOC: M SFHCCLAY 09:23
PROVIDERS: ATTEND Family Medicine
DX: G47.61 Periodic limb movement disorder (principal); Z13.1 Encounter for screening for diabetes mellitus; E21.0 Primary hyperparathyroidism; E89.0 Postprocedural hypothyroidism; E78.5 Hyperlipidemia, unspecified; E87.1 Hypo-osmolality and hyponatremia

== ENCOUNTER → 2025-10-06 | Outpatient (REF) | payer MEDICARE, BC ==
[2025-10-06 14:38] LABS: CHOLESTEROL LEVEL 228.0 MG/DL (<200); CHOLESTEROL RISK RATIO 2.63 (<5); LDL CHOLESTEROL 128.8 MG/DL (<100); NON-HDL-C 141.4 MG/DL; TRIGLYCERIDES LEVEL 63.0 MG/DL (<150)
== END ==
LOC: M LAB REF 13:54
PROVIDERS: ATTEND Nurse Practitioner Family
DX: E89.0 Postprocedural hypothyroidism (principal); E78.5 Hyperlipidemia, unspecified; E21.0 Primary hyperparathyroidism